=== PATIENT | female | born 1945 | race Caucasian/White ===

== ENCOUNTER 2017-05-03 07:08 | Day surgery (SDC) | payer MEDICARE, BC ==
[~2017-05-03 07:08] MED LIST: Acetaminophen TAB* 325 MG PO ONE; Buffered Lidocaine 0.9% SYRIN* 5 ML/SYR SYRINGE INTRADERM ONE; Dexamethasone IV* 4 MG/ML 1 ML (4 MG) IV SLOW PU ONE; Famotidine IV* 10 MG/ML 2 ML (20 mg) IV ONE; Midazolam* 1 MG/ML 2 ML VIAL (2 MG) IV ONE
[2017-05-03] MEDS ORDERED: Buffered Lidocaine 0.9% SYRIN* 5 ML/SYR SYRINGE ONE (07:22)
[2017-05-03] MEDS ORDERED: Lidocaine 2.5%/Prilocain 2.5%* 5 GM TUBE ONE (07:24)
--- NOTE | 2017-05-03 09:41 | RAD ---
HISTORY: Malignant melanoma. Lymphoscintigraphy of the left breast for the purposes of sentinel node identification. COMPARISONS: None TECHNIQUE: Previous imaging was reviewed. The procedure was explained to the patient who indicated that she understood. Written and verbal informed consent was obtained, with an opportunity to ask and answer questions. The breast was marked. A timeout was performed. The patient was prepped and draped in the usual sterile fashion. Technetium 99m sulfur colloid was administered in a subdermal fashion in 4 divided aliquots in a 360 degree arc surrounding the biopsy site of the skin lesion of the the left breast. Cine and planar imaging was performed. The first appearing axillary nodes was identified with the overlying skin marked. DOSE: Technetium 99m sulfur colloid, 0.451 millicuries, injected at 7:57 AM on May 03, 2017 FINDINGS: Uptake is noted within synchronously within 2 left axillary lymph node. The sites of uptake were marked on the overlying skin. OTHER: None IMPRESSION: TECHNICALLY SUCCESSFUL, UNCOMPLICATED, LYMPHOSCINTIGRAPHY OF THE LEFT BREAST FOR THE PURPOSES OF SENTINEL NODE LOCALIZATION. CPT II Codes: 5769L2S
[2017-05-03] MEDS ORDERED: Famotidine IV* 10 MG/ML 2 ML (20 mg) ONE (09:56)
[2017-05-03] MEDS ORDERED: Dexamethasone IV* 4 MG/ML 1 ML (4 MG) ONE (09:56)
[2017-05-03] MEDS ORDERED: Acetaminophen TAB* 325 MG ONE ×2 (10:02→14:54)
[2017-05-03] MEDS ORDERED: Midazolam* 1 MG/ML 2 ML VIAL (2 MG) ONE (10:28)
[2017-05-03] MEDS ORDERED: fentaNYL* 50 MCG/ML 2 ML VIAL (100 MCG VIAL) ONE ×2 (10:28→14:30)
[2017-05-03] MEDS ORDERED: Lidocaine 2% PF * 5 ML VIAL ONE (11:02)
[2017-05-03] MEDS ORDERED: Ondansetron INJ* 2 MG/ML VIAL ONE ×3 (11:02→14:54)
[2017-05-03] MEDS ORDERED: Propofol* 10 MG/ML 20 ML BTL IV PUSH ONE ×2 (11:02→13:15)
[2017-05-03] MEDS ORDERED: fentaNYL* 50 MCG/ML 2 ML VIAL (100 MCG VIAL) IV PRN (12:20)
[2017-05-03] MEDS ORDERED: oxyCODONE TAB* 5 MG TAB PO PRN (12:20)
[2017-05-03] MEDS ORDERED: Naloxone* 0.4 MG/ML 1 ML VIAL IV PRN (12:20)
[2017-05-03] MEDS ORDERED: Ondansetron INJ* 2 MG/ML VIAL IV PRN (12:20)
[2017-05-03] MEDS ORDERED: Scopolamine 1.5 mg* PATCH TRANSDERM PRN (12:20)
[2017-05-03] MEDS ORDERED: diPHENhydraMINE IV* 50 MG/ML 1 ml VIAL (BENADRYL) IV PRN (12:20)
[2017-05-03] MEDS ORDERED: oxyCODONE/Acetamin 5/325 MG* TAB PO PRN (12:20)
[2017-05-03] MEDS ORDERED: PROCHLORPERAZINE INJ 5 MG/ML 2 ML VIAL IV PRN (12:20)
[2017-05-03] MEDS ORDERED: HYDROmorphone INJ* 1 MG/ML CARPUJECT SYRINGE IV PRN (12:20)
[2017-05-03] MEDS ORDERED: Bupivacaine 0.25% SDV* 30 ML ONE (12:31)
[2017-05-03] MEDS ORDERED: EPHEDrine (Pressors)* 50 MG/ML VIAL ONE (12:52)
[2017-05-03] MEDS ORDERED: Glycopyrrolate IV* 0.2 MG/ML 1 ML VIAL ONE (12:52)
[2017-05-03] MEDS ORDERED: ceFAZolin 2 GM in 100 MLS NS (*) BAG IVPB ONE (13:03)
[2017-05-03] MEDS ORDERED: HYDROmorphone INJ* 1 MG/ML CARPUJECT SYRINGE ONE (13:14)
[2017-05-03] MEDS ORDERED: Ibuprofen TAB* 600 MG ONE (14:24)
[2017-05-03 15:18] VITALS: BP 117/83
--- NOTE | 2017-05-03 20:59 | OP ---
CC: [facility]; Dr. Juan Hernández; Dr. Saleem Goodson OPERATIVE REPORT: DATE OF OPERATION: 05/03/17 DATE OF : 47 SURGEON: Barbi Barbosa MD. DIAMOND DIE POLISHER: SUZIE Torre and SUZIE Dong student. PRE-OP DIAGNOSIS: Left breast melanoma. POST-OP DIAGNOSIS: Left breast melanoma. PROCEDURE: Wide excision of left breast melanoma and sentinel lymph node biopsy. INDICATIONS: Ms. Ellis is a 72-year-old woman recently diagnosed with melanoma of left breast promp ting the plan for wider excision and sentinel lymph node biopsy. On the date of the surgery, she unde rwent sentinel lymph node localization without difficulty, 2 nodes were identified. DESCRIPTION OF PROCEDURE: She was then brought to the operating room, placed on the OR table in a leahy pine position and given general anesthesia. The left breast and axilla were prepped and draped in th e usual sterile fashion. After infiltrating with local anesthetic, a curvilinear elliptical incision encompassing the original scar with a 2 cm margin was made. Subcutaneous tissue was then divided wi th electrocautery and hemostasis was achieved with electrocautery. A mass of tissue was excised to a couple of centimeters depth beneath the scar and then marked in the usual fashion and handed off as a specimen. The extent of the incision approached the axilla. So, the decision was made to excise t he sentinel nodes from the breast incision. This was done by using the navigator to identify the natalie roximate location of the sentinel nodes and then using a combination of sharp and blunt dissection to excise the sentinel nodes from the axilla. Clips were used to control small lymphatic and blood ves sels that approached the glands and LigaSure was also used to help control hemostasis. The first sen tinel node had 899 counts in situ, 681 counts ex vivo, the second sentinel node have 614 in situ and 656 ex vivo and the axillary bed counts once the two sentinel nodes were removed was 3. The wound wa s irrigated copiously with saline, hemostasis was assured with a combination of electrocautery and Leahy rgicel and once this appeared adequate, closure was accomplished. This was done with 3-0 and 2-0 Justen ryl in a subcutaneous layer and the skin was closed with 4-0 Vicryl in a subcuticular fashion. Steri -Strips and a dry fluffy dressing were applied. All sponge and instrument counts were correct. The patient tolerated the procedure well and was transferred to Recovery in a stable condition. [id number]/[facility] #: [id number]
[2017-05-06] MEDS ORDERED: Scopolamine PATCH Remove* 1 NOTE MISC PATCH OFF ONE (12:21)
== END 2017-05-03 15:31 | disposition home or self-care (01) ==
LOC: SDS 07:08
PROVIDERS: ATTEND Surgery
DX: C43.52 Malignant melanoma of skin of breast (principal); Z87.891 Personal history of nicotine dependence; I10 Essential (primary) hypertension; Z68.27 Body mass index [BMI] 27.0-27.9, adult; M19.90 Unspecified osteoarthritis, unspecified site; F41.9 Anxiety disorder, unspecified; E78.5 Hyperlipidemia, unspecified
CPT/HCPCS: 78195; 88305; 88307; 88341; 88342; A9270-GY; A9541; J1100; J1170; J2250; J2405; J2704; J3010

== ENCOUNTER 2017-10-18 07:31 | Observation (INO) | payer MEDICARE, BC ==
[2017-10-18] MEDS ORDERED: NS 0.9% 1000 ML* 1,000 ML IV ONE (08:05)
--- NOTE | 2017-10-18 08:14 | ED ---
Complex/Multi-Sys Presentation - HPI Summary HPI Summary: Patient is a 72 y/o F w/ low hemoglobin, weakness, tiredness, and light- headedness onsetting a week ago. Sx were present for a couple of days but she notes in room she is feeling better. Patient reports she went to see her PCP, Dr. Hernández, four days ago and bloodwork was done. She reports she found out today that she had low hemoglobin levels, reported to be between 6-6.2. She denies Hx of low hemoglobin. Patient also denies Hx of GI bleed, abdominal pain, chest pain, and SOB. She states she was diagnosed with melanoma in April and has been feeling overwhelmed with the various scans and appointments. Patient reports she is currently not on treatment for melanoma and reports most tests done as non-concerning. Hx of HTN reported, is on bet-evan. She denies blood thinners. Pt denies diabetes. Allergy to eggs is noted in room. PSHx of Caesarean sections, lumbar spine surgery, and biopsy. In room, she denies Hx of alcohol usage and notes she is an ex-smoker of 11 years. On triage, pain is denied and nothing is noted to aggravate/alleviate Sx. - History Of Current Complaint Chief Complaint: EDWeakness Time Seen by Provider: 10/18/17 07:49 Hx Obtained From: Patient Onset/Duration: Lasting Weeks - one week, Resolved - in room patient reports Sx have resolved Timing: Days - Sx lasted a couple of days, per patient Severity Currently: None - pain is denied Aggravating Factor(s): nothing Alleviating Factor(s): nothing Associated Signs And Symptoms: Positive: Weakness, Other - tiredness, light- headedness - Allergies/Home Medications Allergies/Adverse Reactions: Allergies Allergy/AdvReac Type Severity Reaction Status Date / Time Adhesive Tape Allergy Itching Verified 10/18/17 07:41 eggs Allergy Severe unable to Uncoded 10/18/17 07:41 digest eggs BANDAIDS Allergy Intermediate Rash Uncoded 10/18/17 07:41 PMH/Surg Hx/FS Hx/Imm Hx Endocrine/Hematology History: Denies: Hx Diabetes Cardiovascular History: Reports: Hx Hypertension - on meds Denies: Hx Pacemaker/ICD History: Denies: Hx Renal Disease Musculoskeletal History: Reports: Hx Arthritis Sensory History: Reports: Hx Contacts or Glasses - glasses Denies: Hx Hearing Aid Opthamlomology History: Reports: Hx Contacts or Glasses - glasses Psychiatric History: Reports: Hx Anxiety - no meds Denies: Hx Panic Disorder - Cancer History Cancer Type, Location and Year: MELANOMA Hx Chemotherapy: No - Surgical History Surgery Procedure, Year, and Place: 2 C SECTIONS. CYST REMOVED AT END OF SPINE AGE 19 Hx Anesthesia Reactions: Yes - after first , was an emergency-body "blew up, asleep for 2 days Infectious Disease History: No Infectious Disease History: Denies: Traveled Outside the [place] in Last 30 Days - Family History Known Family History: Positive: Hypertension - mother , Diabetes - mother - Social History Alcohol Use: None Substance Use Type: Reports: None Smoking Status (MU): Former Smoker - former smoker of 11 years Amount Used/How Often: smoked off and on 25 years approx 1/2ppd Review of Systems Positive: Fatigue - weakness, tiredness Neurological: Other - light-headedness All Other Systems Reviewed And Are Negative: Yes Physical Exam - Summary Physical Exam Summary: GENERAL: Patient is a well developed and nourished female who is lying comfortable in the stretcher. Patient is not in any acute respiratory distress. HEAD AND FACE: Normocephalic EYES: PERRLA, EOMI x 2. EARS: Hearing grossly intact. MOUTH: Oropharynx within normal limits. NECK: Supple, trachea is midline, no adenopathy, no JVD, no carotid bruit. CHEST: Symmetric, no tenderness at palpation LUNGS: Clear to auscultation bilaterally. No wheezing or crackles. CVS: Regular rate and rhythm, S1 and S2 present, no murmurs or gallops appreciated. ABDOMEN: Soft, non-tender. Bowel sounds are normal. No abdominal abnormal pulsations. 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 No abnormal findings, brown stool collected which will be sent for guaiac. EXTREMITIES: Full ROM in all major joints, no edema, no cyanosis or clubbing. NEURO: Alert and oriented x 3. No acute neurological deficits. Speech is normal and follows commands. SKIN: Dry and warm brown stool Triage Information Reviewed: Yes Vital Signs On Initial Exam: Initial Vitals Temp Pulse Resp BP Pulse Ox 98.1 F 84 14 137/71 100 10/18/17 07:34 10/18/17 07:34 10/18/17 07:34 10/18/17 07:34 10/18/17 07:34 Vital Signs Reviewed: Yes Diagnostics - Vital Signs Vital Signs Temp Pulse Resp BP Pulse Ox 10/18/17 07:34 98.1 F 84 14 137/71 100 - Laboratory Result Diagrams: 10/19/17 05:30 10/19/17 05:30 Lab Statement: Any lab studies that have been ordered have been reviewed, and results considered in the medical decision making process. - EKG 0849 Cardiac Rate: NL - Rate of 71 BPM EKG Interpretation: supraventricular bigeminy rhythm, Q-waves at anterior leads Re-Evaluation - Re-Evaluation First Eval Re-Evaluation Time: 09:10 Comment: Discussed results of labs and tests. Noted hemoglobin levels have dropped. Patient will be admitted [place] [facility] [place]. Patient is agreeable with this plan. Complex Multi-Symp Course/Dx Assessment/Plan: Patient is a 72 y/o F w/ low hemoglobin, weakness, tiredness, and light-headedness onsetting a week ago. Sx were present for a couple of days but she notes in room she is feeling better. Patient reports she went to see her PCP, Dr. Hernández, four days ago and bloodwork was done. She reports she found out yesterday that she had low hemoglobin levels, reported to be between 6-6.2. She denies Hx of low hemoglobin. Patient also denies Hx of GI bleed, abdominal pain, chest pain, and SOB. She states she was diagnosed with melanoma in April. Hx of HTN reported, is on beta-evan. She denies blood thinners and diabetes. PSHx of Caesarean sections, lumbar spine surgery, and biopsy. In room, she denies Hx of alcohol usage and notes she is an ex-smoker of 11 years. Physical exam revealed no abnormal findings. During ED course, patient was given fluids as well as Labs showed 5.6 Hgb, 19 Hct, WBC 11.9, RBC 2.41, iron 24. Stool Occult Blood was negative. EKG showed rate of 71 BPM and supraventricular bigeminy rhythm, Q-waves at anterior leads. Dr. Duarte was consulted at 09. After discussing case, Dr. Duarte agrees to accept patient for admission to [facility] [place] workup. Patient was diagnosed with symptomatic anemia. Plan for admission was discussed with patient. She is agreeable with this plan. - Diagnoses Provider Diagnoses: Symptomatic anemia - Physician Notifications Discussed Care Of Patient With: eZlda Duarte Time Discussed With Above Provider: 09:23 Instructed by Provider To: Other - Patient's case was discussed with Dr. Duarte at 0923. Dr. Duarte accepts patient for admission to [facility] [place] further workup. - Critical Care Time Critical Care Time: 30-74 min - 15 minutes Discharge - Sign-Out/Discharge Documenting (check all that apply): Patient Departure - admit - Discharge Plan Condition: Good Disposition: ADMITTED TO [facility] - Billing Disposition and Condition Condition: GOOD Disposition: Admitted to [facility] - Attestation Statements Document Initiated by Cresencio: Yes Documenting Scribe: Marty Monsalve Provider For Whom Cresencio is Documenting (Include Credential): Endy Serna M.D. Scribe Attestation: Marty Feldman scribed for Endy Serna M.D. on 10/19/17 at 1725. Scribe Documentation Reviewed: Yes Provider Attestation: The documentation as recorded by the Marty hernandez accurately reflects the service I personally performed and the decisions made by Endy teran M.D.
[2017-10-18 08:59] LABS: ABS Basophils 0.1 10^3/ul (0-0.2); ABS Eosinophils 0.2 10^3/ul (0-0.6); ABS Lymphocytes 1.5 10^3/ul (1.0-4.8); ABS Monocytes 0.9 10^3/ul (0-0.8); ABS Neutrophils 9.3 10^3/ul (1.5-7.7); ABS Nucleated RBC 0 10^3/ul; Eosinophil % 1.3 % (0-6); Hematocrit 19 % (35-47); Hemoglobin 5.6 g/dl (12.0-16.0); Lymphocyte % 12.3 % (25-47); Mean Corpuscular HGB Conc 30 g/dl (31-36); Mean Corpuscular Hemoglobin 23 pg (27-31); Mean Corpuscular Volume 77 fL (80-97); Mean Platelet Volume 7.4 um3 (7.4-10.4); Nucleated Red Blood Cells % 0; Platelet Count 449 10^3/ul (150-450); Red Blood Count 2.41 10^6/ul (4.00-5.40); Red Cell Distribution Width 18 % (10.5-15); White Blood Count 11.9 10^3/ul (3.5-10.8)
[2017-10-18 09:10] LABS: EGFR Non-African American 78.6 (>60)
[2017-10-18 09:12] LABS: INR 0.99 (0.77-1.02)
[2017-10-18] MEDS ORDERED: Ondansetron INJ* 2 MG/ML VIAL IV PRN (11:23)
[2017-10-18] MEDS ORDERED: Magnesium Hydroxide LIQ* 30 ML UDC PO PRN (11:23)
[2017-10-18] MEDS ORDERED: Al Hydrox/Mg Hydrox/Simet LIQ* 30 ML UDC PO PRN (11:23)
[2017-10-18] MEDS ORDERED: Acetaminophen TAB* 325 MG PO PRN (11:23)
[2017-10-18] MEDS ORDERED: Albuterol 2.5 MG/3 ML NEB.SOL* (0.083%) INH PRN (11:23)
[2017-10-18] MEDS ORDERED: Potassium Chlor TAB* 20 MEQ TAB.ER PO ONE (11:28)
--- NOTE | 2017-10-18 15:00 | CONS ---
CONSULTATION REPORT: DATE OF CONSULT: 10/18/17 REQUESTING PHYSICIAN: Dr. Rose. INDICATION: Anemia. NARRATIVE: Ms. Ellis is a very pleasant 72-year-old female, who was recently diagnosed with malignant melanoma. The patient states that she has been feeling progressively worse over the past few weeks. She feels very weak and tired. She saw her primary care physician on Saturday, was feeling terrible and a blood count was low at that point. It was approximately 6.2, back in July, it was 12.0. The patient then called her primary care physician again today, had more blood work and she was found to have a hemoglobin of 5.6 and was told to come to the emergency room. The patient does feel weak, dizzy and lightheaded. She denies any nausea, vomiting. No abdominal pain. She denies any change in her bowel habits. No diarrhea or constipation. She denies any blood in her stool. No bright red, maroon or black tarry stools. She did have a Hemoccult test in the emergency room that was negative. The patient denies any nonsteroidals. She does take Tylenol as needed for aches and pains. She has never had GI bleeding in the past. No family history of GI bleeding. She currently feels fine other than feeling fatigued and lethargic. PAST MEDICAL HISTORY: Significant for hypertension, hyperlipidemia, malignant melanoma. PAST SURGICAL HISTORY: . MEDICATIONS: Include: 1. Toprol. 2. Pravastatin. 3. Lisinopril. 4. Coenzyme Q. ALLERGIES: No known drug allergies. FAMILY HISTORY: Diabetes; however, no malignancies. SOCIAL HISTORY: No tobacco, alcohol, or IV drug use. She quit smoking approximately 10 years ago. REVIEW OF SYSTEMS: Twelve systems were reviewed and other than that mentioned in the HPI were unremarkable. PHYSICAL EXAM: Temperature is 98.1, blood pressure is 133/71, pulse is 74, respiratory rate of 18, O2 sat is 100%. General: A well-appearing female, in no apparent distress; alert, oriented, pleasant, and fluent. HEENT: Mucous membranes are moist without lesions, ulcers, or exudate. Neck is supple. Trachea is midline. Sclerae anicteric, but conjunctivae are pale. Heart: Regular rate and rhythm. Slightly tachycardic. Lungs: Clear to auscultation. No wheezes, rales, or rhonchi. Abdomen: Positive bowel sounds. Obese, soft , nontender, nondistended. No hepato-splenomegaly, masses, rebound, or guarding. Skin is warm and dry, pale. No rashes or ulcers. DIAGNOSTIC STUDIES/LAB DATA: Labs of note, she has a hemoglobin of 5.6, white count is 11.9, her MCV is 77, platelet count of 449. INR is 0.99. BUN is normal at 10, creatinine is 0.73. Her percent saturation is 8, ferritin is 5.5. AST of 10. LDH is 116. She was heme-negative in the emergency room. ASSESSMENT AND PLAN: A pleasant 72-year-old female with malignant melanoma, who has anemia, but no obvious GI source. I had a long discussion with the patient regarding possible causes of anemia. We extensively discussed gastrointestinal blood loss. I discussed the fact that she should have an EGD and colonoscopy for further evaluation of this. At this point, she really does not want either procedure done. She seems adamant about the colonoscopy, but potentially open to an upper endoscopy. She tells me she wants to think about things further. We will follow continue to follow along and return if there are any questions. [id number]/[facility] #: [id number] GREGORIO
[2017-10-18 15:25] LABS: Corrected Retic Count 1.5 % (0.5-1.5); Hematocrit for Retic CNT 21 % (35-47); Immature Retic Fraction 0.54; RBC Retic Count 2.65 10^6/ul (4.6-6.2)
--- NOTE | 2017-10-18 16:47 | HP ---
CC: Dr. Hernández; Dr. Saleem Goodson; Dr. Velasquez from GI * ADMISSION HISTORY AND PHYSICAL: DATE OF ADMISSION: 10/18/17. ATTENDING HOSPITALIST: Dr. Zelda Rose * (DICTATED BY SUZIE PERALTA) PRIMARY CARE PHYSICIAN: Dr. Hernández CHIEF COMPLAINT: Weakness and fatigue. HISTORY OF PRESENT ILLNESS: Mrs. Ellis is a 72-year-old female with past medical history significant for hypertension, hyperlipidemia as well as recent diagnosis of melanoma back in March of this year, who presented to the emergency room with generalized weakness and fatigue since the beginning of this month. The patient was seen by her primary care physician earlier this week and had laboratory workup done. She received the phone call from her primary care's office earlier this morning informing her that she has a critical hemoglobin and hematocrit value and she was advised to go immediately to the emergency room for further evaluation. The patient herself denies any nausea, vomiting, hematemesis, melena, or any history of GI bleed. She has never been on any source of anticoagulation therapy. She has never had any upper endoscopy or colonoscopy in the past. Her only significant recent history was her diagnosis of malignant melanoma back in March of this year, for which she had an excision showing an invasive melanoma stage II up to 13 mm deep, however, her sentinel node biopsy revealed no evidence of node or distant metastasis. The patient has never had any chemotherapy on that regard. She was seen by Dr. Goodson last month and her most recent PET scan was negative back then. She was evaluated in the emergency room and found to have hemoglobin of 5.6 and hematocrit of 19. Her BUN and creatinine were essentially normal which is typically elevated with any source of active GI bleed. She had a stool occult blood done in the emergency room that was negative for GI bleed as well. Given her ongoing symptoms for the past 4 weeks and the finding of profound anemia that appears to be microcytic and microchromic, we were asked to see the patient for admission and further evaluation of symptomatic anemia. PAST MEDICAL HISTORY: As mentioned above is significant for hypertension, hyperlipidemia, obesity, and recent diagnosis of malignant melanoma stage II back in March of this year. PAST SURGICAL HISTORY: Significant for section and cyst excision on her spine at age 18. CURRENT MEDICATIONS: Her medications at home include: 1. Acetaminophen arthritis tablets 1 to 2 q.6 hours as needed for arthritis aches and pains. 2. CoQ10 30 mg capsules 1 tab p.o. daily. 3. Metoprolol succinate 25 mg p.o. b.i.d. 4. Pravastatin 40 mg p.o. q.h.s. 5. Women's multivitamins 1 tablet daily. ALLERGIES: ADHESIVE TAPE, BANDAGE and EGGS. FAMILY HISTORY: Significant for diabetes mellitus and hypertension, but denies any family history of colorectal malignancies. SOCIAL HISTORY: The patient is . She lives with her son and daughter-in - law. 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 She used to be a everyday smoker. Quit back in 2006. Smoked on average half a pack per day and she denies alcohol use. Her surrogate decision maker is her son and she wishes to be a full code. REVIEW OF SYSTEMS: See HPI, otherwise 14-point review of systems were examined and they were essentially negative. PHYSICAL EXAMINATION GENERAL: She is a pleasant, healthy-appearing, older female, appears a little pale, but in no acute distress or discomfort at the time of admission. VITAL SIGNS: Revealed a temperature of 98.1, pulse of 74, blood pressure of 133 /71, respirations of 18 with O2 sats of 100% on room air. HEENT: Head is normocephalic, atraumatic. Sclerae anicteric. EOMs intact. Oropharynx is pink and moist. NECK: Supple. Trachea midline. No cervical adenopathy, thyromegaly or JVD. LUNGS: Clear to auscultation bilaterally. HEART: Regular rate and rhythm. Normal S1 and S2 without rubs, murmurs or gallops. BACK: With normal curvature. No CVA tenderness. BREASTS: Breast exam deferred at this time. ABDOMEN: Soft, nontender, and nondistended. No hernias, masses or hepatosplenomegaly. EXTREMITIES: Without cyanosis, clubbing or edema. RECTAL: Exam deferred at this time. Hemoccult stool done in the ED was negative. NEUROLOGIC: Grossly intact. DIAGNOSTIC STUDIES/LAB DATA: Laboratory workup: CBC with white count of 11, 900, hemoglobin of 5.6, hematocrit of 19, and platelets of 449. Her MCV is 77 and MCH is 23. Coags with normal INR at 0.99. Chemistry panel with slightly decreased potassium of 3.3. Sodium 140, chloride 108, CO2 29, BUN of 10, and creatinine of 0.73. Her glucose is 117. Iron studies revealed iron of 24, TIBC of 308 and iron saturation of 8, unsaturated iron binding of 284, transferrin 220 and ferritin of 5.5. Her LFTs, troponin essentially within normal limits. Vitamin B12 459 and folate was greater than 20. IMPRESSION: A 72-year-old female with past medical history significant for hypertension, hyperlipidemia, and recent diagnosis of malignant melanoma with apparent negative node or distal metastasis who presented to the emergency room with 4 weeks' history of progressive fatigue and weakness on exertion and found to be profoundly anemic on laboratory workup. ASSESSMENT AND PLAN: 1. Severe anemia. The patient will be admitted to a telemetry unit for observation. Her type and cross match was done in the emergency room and orders were given to transfuse 2 units of packed red blood cells. She appeared to be hemodynamically stable with no apparent source of a gastrointestinal bleed at this point. I had a long discussion with her regarding potential endoscopy for further evaluation. The patient has never had any colonoscopy done in the past and never had any upper endoscopy, however, she denies any history of peptic ulcer disease or excessive use of NSAIDs. I discussed with her the potential to have colonic malignancy that could be responsible for her profound anemia and decreased iron. GI consultation is pending at this time. I placed a call for Dr. Fagan and await for him to call back. I also discussed the case with Dr. Fitch who agreed to see the patient in consultation given her history of melanoma, however, she had no evidence of any localized node or metastasis or distal metastasis that could be responsible for her anemia or gastrointestinal bleed potentially. We will recheck her H and H after transfusion. Again, she appears stable with no symptoms of chest pain, palpitation, only fatigue on exertion. 2. Hypertension. I will continue her metoprolol for the time being. 3. Hyperlipidemia. We will continue her statin therapy. 4. Hypokalemia. I will replace her potassium and check labs in the morning. 5. History of melanoma. Again, the patient had excision with good margins and no evidence of a sentinel node metastasis or distal metastasis in her last PET scan, was done in August. I will await recommendation by the Hematology/Oncology team. 6. DVT prophylaxis. Given possibility of gastrointestinal bleed, I will hold off any chemical prophylaxis at this point, even though the patient is considered high risk given her age and history of malignancy. We will utilize SCDs for the time being. 7. Code status. She is a full code. TIME SPENT: Approximately 60 minutes were spent admitting this patient with greater than 50% on taking history and performing physical exam. I went on and discussed the plan of care with my attending, Dr. Rose, who agreed and we will follow her up accordingly. SUZIE PERALTA [id number]/[facility] #: [id number] GREGORIO
[2017-10-18] MEDS: Omeprazole CAP* 20 MG PO SCH ×2 (17:12→20:41)
[2017-10-18] MEDS ORDERED: Atorvastatin* 10 MG TAB PO SCH (18:00)
--- NOTE | 2017-10-18 18:58 | HP ---
HISTORY AND PHYSICAL: ADDENDUM: The case was reviewed and discussed with Lorie Torre, physician processing assistant. Mrs. Ellis is a 72-year-old lady with a past medical history of stage II melanoma who presents to [facility] emergency room with complaints of weakness. She was found to have a hemoglobin of 5.6 and further workup reveals iron deficiency anemia. Stool for occult blood in the emergency room was negative, bu t suspect the patient has GI loss. She will be admitted, will receive 2 PRBCs. We are going to monitor her H and H and she will be seen in consultation by Hematology and Gastroenterology. [id number]/[facility] #: [id number]
[2017-10-18] MEDS: Metoprolol Succinate XL TAB* 25 MG PO SCH (20:41)
[2017-10-18 21:23] LABS: Hematocrit 23 % (35-47); Hemoglobin 7.6 g/dl (12.0-16.0)
--- NOTE | 2017-10-18 21:43 | CONS ---
HEMATOLOGY/ONCOLOGY CONSULTATION REPORT: DATE OF CONSULT: 10/18/17 PRIMARY CARE PROVIDER: Dr. Hernández. PRIMARY ONCOLOGIST: Dr. Goodson. CONSULTING BILLET CUTTER: Dr. Velasquez. REQUESTING PROVIDER: SUZIE Parker CONSULTING PROVIDER: SUZIE Colindres CHIEF COMPLAINT: Weakness and abnormal labs, referred by PCP. 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 The patient had a hemoglobin of 12.0 g/ dL, 08/06/17, and on labs earlier this week, her hemoglobin had fallen to 6.2 g/ dL. The patient did contact oncology office requesting transfusion but urgent GI evaluation was recommended and the patient was referred to the emergency department. The patient reports that she has had progressive weakness over the last month or so. She denies any associated abdominal pain, black or tarry-appearing stools, or bright red blood per rectum. No associated nausea or vomiting. No fevers or night sweats. No new lymphadenopathy or concerning moles. In the emergency department, repeat CBC showed hemoglobin of 5.6 g/dL with an MCV of 77 with mild leukocytosis with total white blood cell count of 11,900 and normal platelet count of 449,000. Coags were noted to be normal. Iron studies show a picture of iron deficiency and her chemistries are remarkable only for mild hypokalemia. The patient denies any recent NSAID use and denies recent addition of anticoagulants or other new medications. PAST MEDICAL HISTORY: 1. Melanoma - T4 tumor, BRAF positive without evidence of metastatic disease. 2. Hypertension. 3. Hyperlipidemia. HOME MEDICATIONS: 1. Acetaminophen 1 to 2 tablets p.o. q.6 hours as needed for pain. 2. CoQ10 30 mg p.o. daily. 3. Metoprolol tartrate 25 mg p.o. twice daily. 4. Pravastatin 40 mg p.o. daily. 5. One-A-Day Women's vitamin. PHYSICAL EXAM: Initial vitals, temperature 98.1 degrees Fahrenheit, pulse 84 beats per minute, respiratory rate 14 per minute, oxygen saturation 100% on room air, blood pressure 137/71 mmHg. General: This is a very pleasant 72-year -old female, who does appear pale but is not in any acute distress. HEENT: Head is normocephalic, atraumatic. Mucous membranes are pink and moist. Cardiovascular: Heart has an occasional extra beat on auscultation, which corresponds to PAC seen on telemetry. No murmurs, rubs, or gallops are appreciated though. Respiratory: Lungs are clear to auscultation without wheezes, crackles, or rhonchi. Abdomen: Soft and nontender to palpation. Extremities: There is trace edema in the left lower extremity, nontender to palpation. Skin: Skin is pale. DIAGNOSTIC STUDIES/LAB DATA: CBC shows white blood cell count of 11,900, hemoglobin of 5.6 g/dL, platelet count of 449,000, MCV of 77, reticulocyte count is pending. INR of 0.99, PTT of 27.5. Comprehensive metabolic panel shows normal sodium of 140 mmol/L, potassium of 3.3, normal BUN of 10, creatinine 0.73. Transaminases and total bilirubin are unremarkable. LDH is low side of normal at 116. Iron saturation at 8%, ferritin low at 5.5. Vitamin B12 is normal at 459. Folate is listed as greater than 20. Imaging: None. ASSESSMENT AND PLAN: This is a 72-year-old female with history of a T4N0M0 melanoma, status post wide excision with negative margins, April of 2017, who presents with severe iron-deficiency anemia and complaints of weakness. 1. Severe iron-deficiency anemia - this appears to be a picture consistent with blood loss likely of a gastrointestinal source. Notably, the patient's stool was negative for blood in the emergency department and she denies any stool changes consistent with bleeding. The patient is currently receiving 2 units of packed red blood cells and plans for hemoglobin to continue to be monitored. Gastroenterology has been consulted and the patient is hesitant to consider endoscopy, either upper or lower. Recommend considering starting a IV proton pump inhibitor and we will discuss this with primary service if Gastroenterology has not already. 2. History of melanoma - last PET scan was completed August of 2017 approximately 6 months out from diagnosis and at that time showed no evidence of disease. The patient did not require any systemic therapy for her melanoma and is currently in close surveillance. It seems unlikely that her current presentation is related to malignancy. 3. Hypertension. 4. Hyperlipidemia. Thank you for this consultation. Hematology/oncology service will follow along with this patient. Recommend continuing plan of care as listed above. SUZIE COLINDRES [id number]/[facility] #: [id number] MTDD
[2017-10-19 05:38] LABS: ABS Basophils 0.1 10^3/ul (0-0.2); ABS Eosinophils 0.4 10^3/ul (0-0.6); ABS Lymphocytes 1.7 10^3/ul (1.0-4.8); ABS Monocytes 1.1 10^3/ul (0-0.8); ABS Neutrophils 8.5 10^3/ul (1.5-7.7); ABS Nucleated RBC 0 10^3/ul; Eosinophil % 3.4 % (0-6); Hematocrit 24 % (35-47); Hemoglobin 7.7 g/dl (12.0-16.0); Lymphocyte % 14.1 % (25-47); Mean Corpuscular HGB Conc 32 g/dl (31-36); Mean Corpuscular Hemoglobin 25 pg (27-31); Mean Corpuscular Volume 77 fL (80-97); Mean Platelet Volume 7.4 um3 (7.4-10.4); Nucleated Red Blood Cells % 0; Platelet Count 417 10^3/ul (150-450); Red Blood Count 3.11 10^6/ul (4.00-5.40); Red Cell Distribution Width 18 % (10.5-15); White Blood Count 11.8 10^3/ul (3.5-10.8)
[2017-10-19 05:55] LABS: EGFR Non-African American 83.9 (>60)
[2017-10-19] MEDS ORDERED: Ferrous Sulfate TAB* 325 MG PO SCH (09:00)
[2017-10-19] MEDS: Metoprolol Succinate XL TAB* 25 MG PO SCH (09:19)
[2017-10-19] MEDS: Omeprazole CAP* 20 MG PO SCH (09:19)
--- NOTE | 2017-10-19 11:00 | PN ---
Progress Note - Progress Note Date of Service: 10/19/17 Note: Discharge Progress Note Primary Diagnosis: iron deficiency anemia Secondary Diagnoses: Hypertension hyperlipidemia melanoma, diagnosed 04/14 Consultations: Dr. Velasquez Procedures: none Pertinent Lab/Radiology testing: FOBT negative Laboratory Tests 10/18/17 10/18/17 10/18/17 08:29 08:33 15:16 WBC 11.9 H Hgb 5.6 L* Hct 19 L MCV Plt Count [place] % (Auto) Retic Count, Calc 3.3 H Potassium 3.3 L Calcium Iron 24 L TIBC 308 % Saturation 8 L Ferritin 5.5 L Lactate Dehydrogenase 116 L Vitamin B12 459 10/19/17 10/19/17 05:30 05:30 WBC 11.8 H Hgb 7.7 L Hct 24 L MCV 77 L Plt Count 417 [place] % (Auto) 9.2 H Retic Count, Calc Potassium 3.6 Calcium 8.0 L Iron TIBC % Saturation Ferritin Lactate Dehydrogenase Vitamin B12 Tests pending upon discharge: none Discharge Physical Exam: Selected Entries 10/19/17 08:13 Temperature 36.9 C Pulse Rate 73 Respiratory 16 Rate Blood Pressure 116/72 (mmHg) Alert, no distress Lungs: clear Heart: RRR, no murmur Abdo: soft, NT, +BS
[2017-10-19 12:04] VITALS: BP 128/69
--- NOTE | 2017-10-20 00:43 | DS ---
CC: Dr. Juan Hernández; Dr. Goodson; Dr. Velasquez DISCHARGE SUMMARY: DATE OF ADMISSION: 10/18/17 DATE OF DISCHARGE: 10/19/17 PRIMARY DIAGNOSIS: Iron-deficiency anemia. SECONDARY DIAGNOSES: 1. Hypertension. 2. Hyperlipidemia. 3. Suspect gastrointestinal bleed, although fecal occult blood negative. 4. Melanoma, diagnosed in March of this year. MEDICATIONS ON DISCHARGE: 1. Toprol-XL 25 mg p.o. b.i.d. 2. Pravachol 40 mg p.o. q.p.m. 3. Multivitamin 1 tab p.o. q.a.m. 4. Tylenol as needed for pain. 5. Iron sulfate 325 mg p.o. b.i.d. 6. Omeprazole 20 mg p.o. b.i.d. HOSPITAL COURSE: A 72-year-old woman was admitted with worsening weakness and fatigue, dyspnea with exertion. She was found to have a hemoglobin of 5.6, but fecal occult blood test was negative. She has not had any melena or hematemesis. The patient was seen in consultation by SUZIE Monroe, of Hematology/Oncology. She had an aggressive T4 lymphoma removed in February of this year with an axill arabella sentinel node dissection that was negative. She evaluated the patient's anemia and found her to be iron-deficient. The patient received 2 units of packed red cells and felt much improved with her fatigue and dyspnea. She was not advised to have any further treatment for melanoma other than surve illance with PET scans and office visits. The patient was also seen in consultation by Dr. Velasquez, Gastroenterology. He recommended colonoscopy and EGD, which she has never had colonoscope or EGD in the past. The patient in the past refused colonoscopy because her family members have had adverse ev ents with these procedures. She will consider endoscopy as an outpatient, but was not ready to decid e at this time. The patient was treated with IV Protonix and started on iron orally. The patient wi ll be discharged on oral proton pump inhibitor on the presumption that she has an intermittent bleedi ng peptic ulcer or gastritis. The patient should follow up with Dr. Goodson for the anemia as well as m elanoma surveillance and should follow up with Dr. Velasquez in his office for discussion of EGD and co lonoscopy. DISPOSITION: To home. ACTIVITY: As tolerated. DIET: Should be low salt. DISCHARGE FOLLOWUP: She should see her primary care doctor, Dr. Hernández, in the next few weeks. [id number]/[facility] #: [id number]
== END 2017-10-19 12:34 | disposition home or self-care (01) ==
LOC: ED 07:31 → MEDTELE 09:32
PROVIDERS: ADMIT Internal Medicine; ATTEND Internal Medicine
DX: D50.9 Iron deficiency anemia, unspecified (principal); E78.5 Hyperlipidemia, unspecified; C43.9 Malignant melanoma of skin, unspecified; E87.6 Hypokalemia; R53.1 Weakness; I10 Essential (primary) hypertension; E66.9 Obesity, unspecified; Z87.891 Personal history of nicotine dependence; Z79.899 Other long term (current) drug therapy; Z82.49 Family history of ischemic heart disease and other diseases of the circulatory system; I25.2 Old myocardial infarction; R94.31 Abnormal electrocardiogram [ECG] [EKG]; R42 Dizziness and giddiness
CPT/HCPCS: 36415; 36430; 80048; 80053; 82272; 82607; 82728; 82746; 83010; 83540; 83550; 83615; 84484; 85014; 85018; 85025; 85045; 85610; 85730; 86850; 86900; 86901; 86922; 93005; 96360; 96361; 99284; A9270-GY; G0378; P9040

== ENCOUNTER 2017-10-30 18:00 | Inpatient (IN) | payer MEDICARE, BC ==
[2017-10-30] MEDS ORDERED: Acetaminophen TAB* 325 MG PO PRN (18:06)
[2017-10-30] MEDS: Omeprazole CAP* 20 MG PO SCH (20:36)
[2017-10-30] MEDS: Ferrous Sulfate TAB* 325 MG PO SCH (20:37)
[2017-10-30] MEDS: Metoprolol Succinate XL TAB* 25 MG PO SCH (20:37)
[2017-10-30] MEDS: Dexamethasone IV* 4 MG/ML 1 ML (4 MG) IV SLOW PU SCH (20:38)
--- NOTE | 2017-10-30 21:35 | HP ---
CC: Dr. Hernández * ADMISSION HISTORY AND PHYSICAL: DATE OF ADMISSION: 10/30/17 PRIMARY CARE PROVIDER: Dr. Hernández. PRIMARY ONCOLOGIST AND ATTENDING PHYSICIAN: Saleem Goodson MD * (DICTATED BY SUZIE COLINDRES) ADMITTING PROVIDER: SUZIE Colindres CHIEF COMPLAINT: Right arm paralysis. HISTORY OF PRESENT ILLNESS: This is a 72-year-old female with hypertension, hyperlipidemia with a history of stage IIC melanoma that was initially resected in February of this year and was later reexcised with lymph node biopsy in April. She was node negative at that time and negative for metastatic disease. The patient has been under surveillance since that time and underwent PET scan in July of this year, which again showed no evidence of disease and the patient has otherwise been asymptomatic. She was hospitalized a couple of weeks ago with complaints of profound weakness and was found to be severely anemic with a hemoglobin of approximately 5.5. This is associated with iron deficiency and seemed to be related to GI blood loss, although her stool was heme-negative at the time of admission. The patient was transfused 2 units of packed red blood cells and she refused and upper and lower endoscopy and was instead treated with a PPI. The patient presented to medical oncology office today for followup from this recent hospitalization and also mentioned that she has been unable to move her right arm for the last couple of days. After thinking back, the patient states that she noted some very slight right arm weakness when she was finding her discharge papers on 10/19/17 as she was leaving the hospital, but otherwise it felt quite well since returning home. Then a few days ago, she went out for a walk and noticed some swelling in her right hand and then had progressive weakness to the point that she has been unable to move her entire right arm. She denied any associated neck pain. No headache or visual changes. No facial drooping or speech slurring. No numbness , tingling, or weakness in any other extremities. The patient was subsequently sent for stat MRI from medical oncology office, which confirmed multiple brain metastases. PAST MEDICAL HISTORY: 1. Stage IIC melanoma, BRAF mutant with a T4 lesion excised from the left breast, initially in February and then with wide excision and lymph node biopsy in April. 2. Hypertension. 3. Hyperlipidemia. 4. Recent GI bleed without endoscopy. PAST SURGICAL HISTORY: 1. section. 2. Benign cyst excised at 18 years of age. HOME MEDICATIONS: 1. Metoprolol succinate 25 mg p.o. twice daily. 2. Pravastatin 40 mg p.o. daily. 3. Ferrous sulfate 325 mg p.o. twice daily. 4. Omeprazole 20 mg p.o. twice daily. FAMILY HISTORY: The patient has no family history of malignancy. Strong family history of diabetes and hypertension. SOCIAL HISTORY: The patient is . Currently, lives alone. She has 2 sons that are in the area and quite supportive. She has approximate 15-pack year smoking history, quit in 2006. PHYSICAL EXAMINATION GENERAL: This is a 72-year-old female, in no acute distress, accompanied by her son. HEENT: Head is normocephalic, atraumatic. Mucous membranes are pink and moist. RESPIRATORY: Lungs are clear to auscultation without wheezes, crackles, or rhonchi. CARDIOVASCULAR: Heart has a regular rate and rhythm without murmurs, rubs, or gallops. ABDOMEN: Abdomen is soft and nontender to palpation. EXTREMITIES: The patient has 1+ edema in the right hand and associated flaccid paralysis of the entire right upper extremity. Passive range of motion is intact and does not cause pain. NEURO: Cranial nerves II through XII were grossly intact with the exception of XI. The patient is unable to complete a right shoulder shrug. She has as mentioned above flaccid paralysis of the right upper extremity. Sensation is intact. No other focal weaknesses noted. LABORATORY EVALUATION: CBC shows a white blood cell count of 12,700, hemoglobin of 8.4 g/dL, and platelet count of 552,000. Comprehensive metabolic panel shows a sodium of 138 mmol/L, potassium of 3.6, BUN of 10, creatinine 0.69 , random glucose of 108. Transaminases and total bilirubin are within normal limits. LDH is pending. IMAGIN. MRI of the brain completed with and without contrast demonstrates multiple enhancing lesions of the cerebral hemispheres bilaterally, the largest lesion is in the left inferofrontal lobe measuring 3.3 cm in size with associated vasogenic edema, most consistent with metastatic disease, there is a 3 mm shift to the right. Additionally, a lesion noted in the right occipital lobe measuring 1.7 cm and a 2.3 cm lesion in the left posterior frontal lobe and anterior parietal lobe. 2. Venous Doppler shows a short segment occlusion of the right basilic vein overlying the elbow and proximal forearm. No evidence of a deep vein thrombosis. ASSESSMENT AND PLAN: This is a 72-year-old female with hypertension, hyperlipidemia, and a history of stage IIC melanoma excised earlier this year who now presents with right upper extremity flaccid paralysis after recent GI bleed with evidence of multiple brain metastases on MRI completed earlier today. The patient is being admitted to the hospital for IV dexamethasone as well as neurosurgical and radiation oncology consultation. 1. Brain metastases - this likely represents new onset of metastatic disease from her known melanoma. PET scan from 3 months ago showed no evidence of systemic disease. Her brain metastases are quite large and case was briefly discussed with radiation oncologist, Dr. Diego Renae who felt that the largest lesion which is causing the majority of her symptoms may be too large to adequately control with radiosurgery alone. We will plan to start IV dexamethasone and monitor right upper extremity for signs of improvement and motor function. Meanwhile, the patient is BRAF mutant and BRAF targeted therapy could help to control [employer] disease as well making the lesion more amenable to radiosurgery. Also requested consultation from Neurosurgery to review for possible decompression. Lowest risk for the patient due to the sensitive region of this metastatic lesion is likely use of corticosteroids accompanied by whole brain radiation and gamma boost in the future as [employer] lesion shrink with systemic therapy. 2. Superficial vein thrombosis - the patient has a superficial occlusion of the right basilic vein over the area of the right elbow. This is not near the deep system and likely related to a recent IV in that arm. She is extremely high risk for bleeding between her brain metastases and recent GI bleed and for this reason, we will not anticoagulate or start antiplatelet therapy at this time. 3. Recent gastrointestinal bleed - the patient refused upper and lower endoscopy during her recent hospitalization. Her hemoglobin today is 8.4 g/dL and it was 7.7 just 10 days ago when she left the hospital. She has had no evidence of additional bleeding since discharge. Her concern for metastatic implants along the GI tract that may have intermittently bled leading to her prior presentation. Briefly, discussed utility of endoscopy with the patient at the time of admission, but we will reinforce this later and the patient will likely require upper and lower endoscopy. 4. Melanoma - in addition to discussion above, we will also restage systemically with a CT of the chest, abdomen, and pelvis. LDH was also added on to labs from earlier today. 5. Hypertension - continue metoprolol. 6. Hyperlipidemia. Continue her statin. 7. Code status. The patient is full code. 8. DVT prophylaxis - we will hold on chemical prophylaxis given high risk of bleeding. Recommend intermittent compression devices. 9. Healthcare proxy is her son. DISPOSITION: The patient is being admitted to inpatient status and anticipated length of stay to be greater than 2 midnights. SUZIE COLINDRES [id number]/[facility] #: [id number] MTDFrancia
[2017-10-31] MEDS ORDERED: Iohexol 300* (CONTRAST) 10 ML SDV IV ONE (07:38)
[2017-10-31 08:42] LABS: EGFR Non-African American 94.9 (>60)
[2017-10-31 09:17] LABS: ABS Basophils 0 10^3/ul (0-0.2); ABS Eosinophils 0 10^3/ul (0-0.6); ABS Lymphocytes 1.1 10^3/ul (1.0-4.8); ABS Monocytes 0.4 10^3/ul (0-0.8); ABS Neutrophils 9.9 10^3/ul (1.5-7.7); ABS Nucleated RBC 0 10^3/ul; Eosinophil % 0 % (0-6); Hematocrit 26 % (35-47); Hemoglobin 8.1 g/dl (12.0-16.0); Lymphocyte % 9.7 % (25-47); Mean Corpuscular HGB Conc 32 g/dl (31-36); Mean Corpuscular Hemoglobin 26 pg (27-31); Mean Corpuscular Volume 81 fL (80-97); Mean Platelet Volume 7.3 um3 (7.4-10.4); Nucleated Red Blood Cells % 0; Platelet Count 491 10^3/ul (150-450); Red Blood Count 3.18 10^6/ul (4.00-5.40); Red Cell Distribution Width 22 % (10.5-15); White Blood Count 11.4 10^3/ul (3.5-10.8)
--- NOTE | 2017-10-31 10:55 | RAD ---
HISTORY: new brain mets, systemic staging COMPARISONS: None TECHNIQUE: Multiple contiguous axial CT scans were obtained of the chest, abdomen, and pelvis after the administration of intravenous contrast. Coronal and sagittal multiplanar reformations are submitted for review.. Oral contrast was administered. Delayed images were obtained through the abdomen and pelvis. FINDINGS: CHEST NECK AND THYROID: The lower neck and thyroid are unremarkable. CHEST WALL: There is no lower cervical, axillary, or supraclavicular lymphadenopathy by size criteria. HEART AND PERICARDIUM: The heart is unremarkable. AORTA AND PULMONARY VASCULATURE: The aorta and pulmonary vasculature are normal. The left vertebral artery originates from the aortic arch. MEDIASTINUM: There is no mediastinal lymphadenopathy by size criteria. JOAN: There is no hilar lymphadenopathy by size criteria. AIRWAY AND ESOPHAGUS: The airway is unremarkable, without endobronchial filling defect. The esophagus is grossly normal. LUNG PARENCHYMA: There is a stable 0.3 cm nodule of the left upper lobe. There is a stable 0.4 cm nodule of the periphery of the right lower lobe PLEURA: No pleural abnormalities are noted. BONES AND SOFT TISSUES: Mild degenerative changes are noted. ABDOMEN/PELVIS: LIVER: The liver is normal in shape, size, contour, and attenuation. BILE DUCTS: There is no intrahepatic or extrahepatic biliary dilatation. GALLBLADDER: The gallbladder is normal, without pericholecystic inflammatory change. PANCREAS: The pancreas is normal, without mass or ductal dilatation. SPLEEN: Normal in size and appearance. UPPER GI TRACT: Evaluation of the gastrointestinal tract is limited by incomplete gastric distention. The upper GI tract is unremarkable. SMALL BOWEL & MESENTERY: The small bowel is normal in contour, course, and caliber. There is no obstruction or dilatation. The intussusception noted on the previous examination is not visualized on the current examination. COLON: There is polypoid mucosal thickening in the region of the hepatic flexure, best seen on coronal image 35 and axial image 39 ADRENALS: Normal bilaterally. KIDNEYS: There are stable bilateral renal cysts. There is a stable left renal calyceal stone.. BLADDER: The bladder is collapsed and is not well evaluated. PELVIC ORGANS: The pelvic organs are not visualized. AORTA: There is calcific atherosclerotic disease of the abdominal aorta and its branches, without aneurysmal dilatation IVC: Unremarkable LYMPH NODES: There is no lymphadenopathy by size criteria. ABDOMINAL WALL: There is no evidence for abdominal wall hernia. BONES AND SOFT TISSUES: There are mild diffuse degenerative changes. OTHER: None IMPRESSION: 1. STABLE PULMONARY PARENCHYMAL NODULES. 2. POLYPOID MUCOSAL THICKENING OF THE LARGE BOWEL. RECOMMEND CONSIDERATION OF CORRELATION WITH DIRECT VISUALIZATION. 3. ATHEROSCLEROSIS.
[2017-10-31] MEDS: Ferrous Sulfate TAB* 325 MG PO SCH ×2 (10:57→21:31)
[2017-10-31] MEDS: Metoprolol Succinate XL TAB* 25 MG PO SCH ×2 (10:57→21:31)
[2017-10-31] MEDS: Omeprazole CAP* 20 MG PO SCH ×2 (10:57→21:31)
[2017-10-31] MEDS: Dexamethasone IV* 4 MG/ML 1 ML (4 MG) IV SLOW PU SCH ×3 (10:57→21:33)
[2017-10-31] MEDS ORDERED: Atorvastatin* 10 MG TAB PO SCH (18:00)
--- NOTE | 2017-10-31 20:46 | PN ---
Progress Note - Progress Note Date of Service: 10/31/17 SOAP: Subjective: [No change in R arm. No new complaints. Tolerating steroids well. Anxious about treatment plan.] Objective: [ Laboratory Results - last 24 hr 10/31/17 10/31/17 10/31/17 07:33 09:03 09:03 WBC 11.4 H RBC 3.18 L Hgb 8.1 L Hct 26 L MCV 81 MCH 26 L MCHC 32 RDW 22 H Plt Count 491 H D MPV 7.3 L Neut % (Auto) 86.8 H Lymph % (Auto) 9.7 L [place] % (Auto) 3.4 Eos % (Auto) 0 Baso % (Auto) 0.1 Absolute Neuts (auto) 9.9 H Absolute Lymphs (auto) 1.1 Absolute Monos (auto) 0.4 Absolute Eos (auto) 0 Absolute Basos (auto) 0 Absolute Nucleated RBC 0 Nucleated RBC % 0 Sodium 135 Potassium TNP 3.3 L Chloride 107 Carbon Dioxide 17 L Anion Gap 11 BUN 13 Creatinine 0.62 Est GFR ( Amer) 114.8 Est GFR (Non-Af Amer) 94.9 BUN/Creatinine Ratio 21.0 H Glucose 158 H Calcium 7.7 L Total Bilirubin 0.20 AST TNP 12 L ALT 9 Alkaline Phosphatase 65 Total Protein 4.5 L Albumin 2.4 L Globulin TNP Albumin/Globulin Ratio TNP Acetaminophen (Tylenol Tab*) 650 mg PO Q4H PRN PRN Reason: FEVER/PAIN Atorvastatin Calcium (Lipitor*) 10 mg PO QPM [facility]; Protocol Last Admin: 10/31/17 18:18 Dose: 10 mg Dexamethasone Sodium Phosphate (Decadron Iv*) 8 mg IV SLOW PU TID [facility] Last Admin: 10/31/17 15:18 Dose: 8 mg Ferrous Sulfate (Ferrous Sulfate Tab*) 325 mg PO BID [facility] Last Admin: 10/31/17 10:57 Dose: 325 mg Metoprolol Succinate (Toprol Xl Tab*) 25 mg PO BID [facility] Last Admin: 10/31/17 10:57 Dose: 25 mg Omeprazole (Prilosec Cap*) 20 mg PO BID [facility] Last Admin: 10/31/17 10:57 Dose: 20 mg Vital Signs: Temp Pulse Resp BP Pulse Ox 98.3 F 68 16 135/60 97 10/31/17 19:27 10/31/17 19:27 10/31/17 19:27 10/31/17 19:27 10/31/17 19:27 Exam Gen: Relatively well appearing 72 yo female in NAD. Accompanied by VICKIE HEENT: MMM, no thrush CV: RRR no m/r/g Resp: lungs CTA, no w/c/r Abd: soft, non TTP Ext: flaccid RUE with associated edema Neuro: unable to shrug R shoulder, no movement of RUE Skin: no concerning rashes or lesions] Assessment: [72 yo female with h/o stage IIC melanoma fully excised Apr 2017 who presented with flaccid paralysis of the RUE with multiple focal brain metastases appreciated on MRI.] Plan: [1. Brain metastases - likely recurrence of melanoma - CT C/A/P shows polypoid thickening of the colon without associated abdominal LAD or other metastatic disease - appreciate input from radiation oncology and neurosurgery - plan at this time is to proceed with gamma knife at [facility] next week - urgently start BRAF inhibitor - cont IV dexamethasone 8 mg tid 2. Superficial venous thrombus - short segment occlusion of R basilic vein at the level of the elbow - no anticoagulation at this time due to high risk of bleeding 3. Recent GI bleed - polypoid thickening of colon on CT - patient requires colonoscopy in near future, but she is overwhelmed by new diagnosis and refused endoscopy at recent admission - cont PPI]
--- NOTE | 2017-11-01 03:17 | RADMED ---
CC: Dr. 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 PERFORMANCE STATUS: ECOG 2. HISTORY OF PRESENT ILLNESS: Karolina Ellis is a 72-year-old woman who presented with bleeding pigmented lesion on the left chest wall treated with initial biopsy confirming melanoma with high-risk features. She underwent subsequent wide local excision, sentinel lymph node biopsy, as well as radiographic staging with no evidence of regional or distant metastatic disease. She had an episode 1 month ago of severe anemia requiring hospitalization, and approximately 1 week ago noted weakness of the right arm and swelling which progressed. When she returned for a follow up visit she was noted to have plegia of the right arm, and MRI of the brain was obtained on 07/12 identifying multiple enhancing lesions consistent with brain metastases with some main concerning lesions involving the left frontal lobe along the motor strip, left anterior frontal lobe, and right occipital lobe with multiple additional subcentimeter enhancing lesions identified including a lesion in the brain stem in proximity to the cerebral aqueduct. She is admitted, placed on high-dose dexamethasone, and is referred for Radiation Oncology consultation regarding management of newly discovered brain metastases. She has remained relatively healthy other than these recent episodes, has had some low-level headaches, remains active and ambulatory, performing normal daily activities until very recently. PAST MEDICAL HISTORY: Melanoma as in history of present illness. History of hyperlipidemia and hypertension. MEDICATIONS: As per the inpatient record include: 1. Tylenol. 2. Lipitor. 3. Dexamethasone. 4. Iron. 5. Toprol. 6. Prilosec. ALLERGIES: EGGS. No known drug allergies. FAMILY HISTORY: No history of malignancy reported in her first-degree relatives. SOCIAL HISTORY: She is a former smoker, having quit in the relatively distant past, and does not drink a substantial amount of alcohol. REVIEW OF SYSTEMS: As in the history of present illness, otherwise a complete review of systems is obtained from the patient, negative for additional significant findings. PHYSICAL EXAMINATION: Vital Signs: Temperature 98.5, pulse rate 75, respiratory rate 16, oxygen saturation 95%, blood pressure 123/75. General: She is awake, alert, and oriented in no acute distress. Normocephalic and atraumatic. Sclerae are anicteric. Neck is supple. Full range of motion. Midline trachea. No palpable on the neck or thyroid. Lungs: Clear to auscultation bilaterally. Cardiovascular: S1 and S2 regular. Abdomen is soft and nontender. No masses, no organomegaly. Extremities: Some edema in the distal left lower extremity over the past month or more as well as extremity edema and plegia in the right upper extremity. Neurologic: Cranial nerves II through XII are intact. Strength is absent in the right upper extremity distal to proximal, otherwise intact resistance, full in the proximal and distal muscle groups in the left upper extremity as well as the bilateral lower extremities. PATHOLOGY AND RADIOLOGY: Reviewed, as in the history of present illness. ASSESSMENT AND PLAN: Karolina Ellis is a 72-year-old woman with high-risk cutaneous melanoma status post surgery approximately 6 months ago, now with multiple enhancing lesions in the brain consistent with brain metastases. I did review her history as well as the pathologic and radiographic findings, I discussed at some length with the patient and her family as they are already well informed and familiar. We reviewed her situation in detail with high suspicion for brain metastases from melanoma, although she has no evidence for active extracranial malignancy including repeat CT of the chest, abdomen, and pelvis performed earlier today, 10/31/17. We discussed considerations for biopsy for pathological confirmation, and with concern for the deep and eloquent nature of the specific lesion as well as the high level of suspicion and the desire to avoid invasive procedures, she would be a candidate for empirical therapy based on suspected brain metastases from melanoma with some level of uncertainty if pathology is not confirmed. With regard to management options, I compared and contrasted initial approach with whole brain radiation therapy as well as stereotactic radiosurgery. I explained the logistics and rationale for these treatments, risks, benefits, and alternatives as well as acute and intermodal customer service frequent and uncommon toxicities. Her brain MRI has been reviewed by Dr. Martinez at [facility] for this opinion as well. Typically with multiple lesions whole brain radiation therapy has been a primary option. Melanoma, is often considered radio-resistant to standard palliative doses, and with a significant extent of disease whole brain radiation therapy is limited as well as potentially more toxic than radiosurgery. There is substantial evidence showing efficacy of Gamma Knife radiosurgery for melanoma and after review with Dr. Martinez, he does feel that she would be a candidate for Gamma Knife radiosurgery, Depite the larger size of the left sided lesions. I compared and contrasted these treatments in detail , and answered the patient's and her families questions to the best of my ability. I do wonder if there is some potential role for additional systemic therapy following local treatment for brain metastases in her situation which I will defer to her oncologist, Dr. Goodson. She seems quite overwhelmed, and did not make any final decision regarding treatment but does seem inclined to consider Gamma Knife. She tentatively has a treatment spot held for 11/06/17. I will follow up with her tomorrow for additional discussion and potentially for treatment planning, and I invited her to contact me with any additional questions or concerns. Thank you for giving me the opportunity to participate in the care of this very pleasant patient. [id number]/[facility] #: [id number] GREGORIO
[2017-11-01] MEDS ORDERED: diPHENhydraMINE PO* 50 MG PO ONE (10:00)
[2017-11-01] MEDS: Omeprazole CAP* 20 MG PO SCH (10:20)
[2017-11-01] MEDS: Metoprolol Succinate XL TAB* 25 MG PO SCH (10:20)
[2017-11-01] MEDS: Ferrous Sulfate TAB* 325 MG PO SCH (10:20)
[2017-11-01 12:30] LABS: Hematocrit 26 % (35-47); Hemoglobin 7.9 g/dl (12.0-16.0); Mean Corpuscular HGB Conc 31 g/dl (31-36); Mean Corpuscular Hemoglobin 25 pg (27-31); Mean Corpuscular Volume 81 fL (80-97); Mean Platelet Volume 7.1 um3 (7.4-10.4); Platelet Count 606 10^3/ul (150-450); Red Blood Count 3.15 10^6/ul (4.00-5.40); Red Cell Distribution Width 21 % (10.5-15); White Blood Count 22.2 10^3/ul (3.5-10.8)
[2017-11-01 12:54] LABS: EGFR Non-African American 100.5 (>60)
[2017-11-01 12:56] LABS: ABS Basophils 0 10^3/ul (0-0.2); ABS Eosinophils 0 10^3/ul (0-0.6); ABS Lymphocytes 1.9 10^3/ul (1.0-4.8); ABS Monocytes 1.9 10^3/ul (0-0.8); ABS Neutrophils 18.4 10^3/ul (1.5-7.7); ABS Nucleated RBC 0 10^3/ul; Eosinophil % 0 % (0-6); Lymphocyte % 8.4 % (25-47); Nucleated Red Blood Cells % 0
[2017-11-01 13:15] VITALS: BP 132/62
--- NOTE | 2017-11-01 13:38 | PN ---
Progress Note - Progress Note Date of Service: 11/01/17 SOAP: Subjective: []Better. Can move arm some. Does not like Dex, anxious. No TERRELL. No abd pain, bowls moving well. Acetaminophen (Tylenol Tab*) 650 mg PO Q4H PRN PRN Reason: FEVER/PAIN Atorvastatin Calcium (Lipitor*) 10 mg PO QPM [facility]; Protocol Last Admin: 10/31/17 18:18 Dose: 10 mg Dexamethasone Sodium Phosphate (Decadron Iv*) 8 mg IV SLOW PU TID [facility] Last Admin: 10/31/17 21:33 Dose: 8 mg Ferrous Sulfate (Ferrous Sulfate Tab*) 325 mg PO BID [facility] Last Admin: 11/01/17 10:20 Dose: 325 mg Metoprolol Succinate (Toprol Xl Tab*) 25 mg PO BID [facility] Last Admin: 11/01/17 10:20 Dose: 25 mg Omeprazole (Prilosec Cap*) 20 mg PO BID [facility] Last Admin: 11/01/17 10:20 Dose: 20 mg Objective: [] Vital Signs Temp Pulse Resp BP Pulse Ox 98.5 F 59 18 132/62 99 11/01/17 11:27 11/01/17 11:27 11/01/17 11:27 11/01/17 11:27 11/01/17 11:27 Exam Gen: Relatively well appearing 72 yo female in NAD. A HEENT: MMM, no thrush CV: RRR no m/r/g Resp: lungs CTA, no w/c/r Abd: soft, non TTP Ext: flaccid RUE with associated edema Neuro: improved movement right shoulder and arm but still cannot move hand. Skin: no concerning rashes or lesions] CT - colon mass, likely melanoma. No other disease Assessment: [72 yo female with h/o stage IIC melanoma fully excised Apr 2017 who presented with flaccid paralysis of the RUE with multiple focal brain metastases appreciated on MRI and CT with colon mass.] Plan: [1. Brain metastases - likely recurrence of melanoma - Will change Dex to 6 mg am and at dinner. Must take every day. 2. Superficial venous thrombus - short segment occlusion of R basilic vein at the level of the elbow - no anticoagulation at this time due to high risk of bleeding 3. Recent GI bleed. I suspect melanoma lesion in colon. - strong recommendation for colonoscopy, will arrange as out patient. - Tx PRBC 1 U today - Plan IV iron next week, Venofer 4. Melanoma. Start therapy for B-annie DANYELL
[2017-11-01] MEDS: Dexamethasone IV* 4 MG/ML 1 ML (4 MG) IV SLOW PU SCH ×2 (17:22→19:19)
--- NOTE | 2017-11-01 19:11 | PN ---
Progress Note - Progress Note Date of Service: 11/01/17 SOAP: Subjective: [No events On. Receiving blood tx. Son at bedside. Objective: []AAOx3 SUSANNA, CN II-XII grossly intact Motor 4-5/5 except RUE 2-3/5 Sensory grossly intact to light touch Assessment: []72 yo f hx melanoma, multiple brain lesions Plan: []Discussed in details with the patient and her son regarding treatment options and possibility of surgical intervention. Patient understands and would like to proceed with SRS on in [place]. Thank you for allowing us to participate in the care of this patient. Will be available if needed. Corky Monzon MD
--- NOTE | 2017-11-01 22:07 | DS ---
DISCHARGE SUMMARY: DATE OF ADMISSION: 10/30/17 DATE OF DISCHARGE: 11/01/17 DISCHARGE DIAGNOSES: 1. Metastatic melanoma. 2. NATURAL RESOURCES MANAGER metastases. 3. GI bleed secondary to colon mass. 4. Hypertension. HOSPITAL COURSE: She came in yesterday after presenting to clinic with new weakness in the right upp er extremity. MRI showed multiple bone lesions and associated edema. She was placed on IV dexametha sone and has had consultation by Dr. Renae. She has a history of GI bleed and was found again to be anemic with hemoglobin 7.9. CT scan of chest, abdomen and pelvis showed a polypoid mass in the colo n, possible metastatic melanoma. She has done well over the last 2 days with some improvement in her right arm pain. She has been stable on steroids, eating well. No focal aches or pains. No fevers or chills. Very anxious to go home. Plan will be to transfuse 1 unit of packed red blood cells today for anemia and continued GI bleed. He will then be discharged home with followup with me on Saturday morning at 8 a.m. We will plan IV ir on through next week with Venofer 20 mg daily. She is scheduled by Dr. Renae to be seen at [place] on 11/06/17, for gamma knife. We will discuss the need for a systemic therapy for her melanoma and chay fowler will plan on BRAF targeted treatment. Prescriptions will be started today from the office. That chay ill likely take about a week before she has them in hand. Plan will be oral therapy for her melanoma with close followup and management of NATURAL RESOURCES MANAGER disease. We also discussed the importance of having a path ologic diagnosis of metastasis. I strongly recommend she have a colonoscopy, which will be planned w mallyin the next 2 weeks. She is agreeing to procedure today. She has had some side effects with dexa methasone including anxiety. We will reduce the dose to 6 mg p.o. b.i.d., but I stressed that she mu st take that consistently and to call our office with any additional problems with the medication. S he agreed to that as well. DISCHARGE MEDICATIONS: 1. Ferrous sulfate 325 b.i.d. 2. Metoprolol 25 XL daily. 3. Omeprazole 20 mg p.o. b.i.d. 4. Pravastatin 40 mg p.o. daily. 5. Dexamethasone 6 mg p.o. b.i.d. FOLLOWUP: Saturday. [id number]/[facility] #: [id number]
--- NOTE | 2017-11-01 22:33 | CONS ---
CONSULTATION NOTE: DATE OF ADMISSION: 10/30/17. DATE OF CONSULTATION: 10/31/17. HISTORY OF PRESENT ILLNESS: The patient is a very pleasant 72-year-old female with a history of hypertension, hyperlipidemia, and history of melanoma that was initially resected in February with reexcision with lymph node biopsy in April. At that time, the patient was under surveillance and underwent a PET scan in July 2017 without evidence of disease. The patient had hospitalization a few weeks ago with weakness, and was found to have anemia and seemed to be related to GI blood loss. She received 2 units of red blood cells and she was followed by Oncology. The patient presented to Oncology office with 2 or 3 days of history of complete right upper extremity paralysis. For this, [facility] was referred for an MRI of her brain, which revealed multiple lesions possible metastatic including a left large frontal lesion extended to the area of the insula and a left frontoparietal lesion extended to the motor cortex with mass effect. The patient was consulted and was started on Tegaderm, requested to see the patient by the Oncology Service for possibility of surgical resection. The patient reports that she has no other complaints other than the weakness of the right upper extremity. It was started gradually. She reports that her feeling is preserved. She denies any seizures. She denies any visual or speech difficulties. She denies any difficulties with her walking. Denies any problems with her balance. She denies any urinary or GI incontinence. PAST MEDICAL HISTORY: Stage IIC melanoma, BRAF mutant with excision from the left breast, hypertension, hyperlipidemia, GI bleed. PAST SURGICAL HISTORY: , benign cyst. HOME MEDICATIONS: The patient was on: 1. Metoprolol. 2. Pravastatin. 3. Ferrous sulfate. 4. Omeprazole. FAMILY HISTORY: No history of malignancy. Positive for diabetes and hypertension. SOCIAL HISTORY: The patient is a . She lives alone. She has 2 sons. Tobacco negative. She is a prior smoker. Alcohol negative. Recreational drug use negative. PHYSICAL EXAM: On physical examination, the patient is not in acute distress. She is awake, alert, oriented x3. Her pupils are equal and reactive. Cranial nerves II through XII are grossly intact. Motor 4-5/5 in the lower extremities with the exception of the right upper extremity with 0 to 5. Sensory is grossly intact to light touch. Deep tendon reflexes +1 in the lower extremities , 1+ on the left upper extremity, +2 on the right upper extremity. Clonus negative. Babinski negative. Ledezma is negative. DIAGNOSTIC STUDIES/LAB DATA: The patient had an MRI of the brain with contrast revealing multiple metastatic lesions including a left frontal lesion extending into the insular area and also a left frontoparietal lesion extending on the motor cortex with surrounding edema. ASSESSMENT: The patient is a pleasant 72-year-old female with a history of melanoma with the presentation of right upper extremity paralysis with MRI findings consistent with multiple lesions possible metastatic. PLAN/RECOMMENDATIONS: Based on her imaging on presentation as well as her prognosis, we discussed with the patient MRI findings and discussed the role of possible surgical intervention in forms of diagnosis and decompression of possibility lesion over the motor cortex, which most likely accounts for her paralysis. We also discussed the possibility of surgical intervention for the left frontal lesion if she would not be possibly treated with radiosurgery. The patient understands non-operative and operative treatment options as well as the role of whole brain radiation and radiosurgery. At this point, she would like to avoid any surgical intervention, understanding the possible outcome of its treatment option and her decision. Thank you for allowing us to participate in the care of this patient. Please do not hesitate to contact our office in case you have any further questions or concerns regarding the care of this patient. [id number]/[facility] #: [id number] GREGORIO
== END 2017-11-01 19:25 | disposition home or self-care (01) | DRG 55 ==
LOC: MED 18:54
PROVIDERS: ADMIT Internal Medicine Hematology & Oncology; ATTEND Internal Medicine Hematology & Oncology
PROC: 30233N1 Transfusion of Nonautologous Red Blood Cells into Peripheral Vein, Percutaneous Approach (ICD-10-PCS; principal; 2017-11-01)
DX: C79.31 Secondary malignant neoplasm of brain (principal); I82.611 Acute embolism and thrombosis of superficial veins of right upper extremity; K92.2 Gastrointestinal hemorrhage, unspecified; C78.5 Secondary malignant neoplasm of large intestine and rectum; I10 Essential (primary) hypertension; E78.5 Hyperlipidemia, unspecified; D50.9 Iron deficiency anemia, unspecified; C43.9 Malignant melanoma of skin, unspecified; G83.21 Monoplegia of upper limb affecting right dominant side; F41.9 Anxiety disorder, unspecified; T38.0X5A Adverse effect of glucocorticoids and synthetic analogues, initial encounter; Y92.239 Unspecified place in hospital as the place of occurrence of the external cause; Z83.3 Family history of diabetes mellitus; Z82.49 Family history of ischemic heart disease and other diseases of the circulatory system; Z87.891 Personal history of nicotine dependence
CPT/HCPCS: 36415; 70553; 71260; 74177; 80053; 83615; 84155; 85025; 86850; 86900; 86901; 86922; 99211; 99223; 99232; 99239; A9270-GY; A9579; G0463; J1100; P9040; Q9967

== ENCOUNTER 2018-04-02 15:37 | Inpatient (IN) | payer MEDICARE, BC ==
[2018-04-02] MEDS ORDERED: Magnesium Sulf 4 GM/100 ML IV* 4,000 MG/100 ML BAG IVPB ONE (17:00)
[2018-04-02] MEDS: KCL 10 MEQ/50 ML IVPREMIX* 10 MEQ/50 ML BAG IV SCH ×3 (17:58→21:53)
[2018-04-02] MEDS: NS 0.9% 1000 ML** 1,000 ML IV SCH (17:59)
[2018-04-02] MEDS: Magnesium Oxide TAB* 400 MG PO SCH (20:31)
[2018-04-02] MEDS: ALPRAZolam TAB* 0.25 MG PO SCH (20:31)
[2018-04-02] MEDS: Heparin VIAL(*) 5000 UNITS/ML VIAL (FIVE THOUSAND) SUBCUT SCH (21:54)
[2018-04-03] MEDS: Acetaminophen TAB* 325 MG PO PRN (00:27)
[2018-04-03] MEDS ORDERED: Cefepime 2 GM in Dextrose(*) 2 GM/50 ML BAG IV SCH (04:00)
[2018-04-03] MEDS: NS 0.9% 1000 ML** 1,000 ML IV SCH ×3 (04:21→21:05)
[2018-04-03] MEDS: Heparin VIAL(*) 5000 UNITS/ML VIAL (FIVE THOUSAND) SUBCUT SCH ×3 (05:56→21:05)
[2018-04-03 06:47] LABS: Hematocrit 31 % (35-47); Hemoglobin 10.3 g/dl (12.0-16.0); Mean Corpuscular HGB Conc 33 g/dl (31-36); Mean Corpuscular Hemoglobin 29 pg (27-31); Mean Corpuscular Volume 86 fL (80-97); Mean Platelet Volume 7.7 fL (7.4-10.4); Platelet Count 226 10^3/ul (150-450); Red Cell Distribution Width 18 % (10.5-15); White Blood Count 3.8 10^3/ul (3.5-10.8)
[2018-04-03 07:04] LABS: Albumin 2.6 g/dL (3.2-5.2); Albumin/Globulin Ratio 0.8 (1-3); BUN/Creatinine Ratio 11.7 (8-20); Calcium 9.7 mg/dL (8.6-10.3); EGFR African American 14.8 (>60); EGFR Non-African American 12.2 (>60); Globulin 3.1 g/dL (2-4); Total Bilirubin 0.7 mg/dL (0.2-1.0); Total Protein 5.7 g/dL (6.4-8.9)
[2018-04-03 07:10] LABS: Potassium 2.6 mmol/L (3.5-5.0)
[2018-04-03 07:30] LABS: ABS Basophils 0 10^3/ul (0-0.2); ABS Eosinophils 0 10^3/ul (0-0.6); ABS Lymphocytes 0.8 10^3/ul (1.0-4.8); ABS Monocytes 0.6 10^3/ul (0-0.8); ABS Neutrophils 2.3 10^3/ul (1.5-7.7)
[2018-04-03 07:33] LABS: ABS Basophils 0 10^3/ul (0-0.2); ABS Eosinophils 0 10^3/ul (0-0.6); ABS Neutrophils 2.7 10^3/ul (1.5-7.7); Lymphocytes % 17 %; Monocytes % 13 %; Neutrophil % 70 %
[2018-04-03] MEDS: KCL 20 MEQ/100 ML IVPREMIX* 20 MEQ/100 ML BAG IV SCH ×3 (08:41→13:18)
[2018-04-03] MEDS: Magnesium Oxide TAB* 400 MG PO SCH (08:43)
[2018-04-03] MEDS: Potassium Chlor TAB* 20 MEQ TAB.ER PO SCH (08:43)
[2018-04-03] MEDS ORDERED: Metoprolol Succinate XL TAB* 25 MG PO SCH (09:00)
[2018-04-03 09:41] LABS: Phosphorus 5.3 mg/dL (2.5-5.0); Uric Acid 5.5 mg/dL (2.3-6.6)
--- NOTE | 2018-04-03 09:53 | PN ---
Progress Note - Progress Note Date of Service: 04/03/18 SOAP: Subjective: feels better today but still tremulous and very weak. Objective: Vital Signs Temp Pulse Resp BP Pulse Ox 96.3 F 53 20 109/62 96 04/03/18 07:37 04/03/18 07:37 04/03/18 08:52 04/03/18 07:37 04/03/18 07:37 lying flat in bed in nad perr eomi op very dry CTA bl s1 s2 w occ ectopy soft nt +Bs no le edema tremor RUE globally weak oriented x 3 but slow to answer Laboratory Results - last 24 hr 04/03/18 04/03/18 04/03/18 05:19 06:30 06:30 WBC 3.8 RBC 3.60 L Hgb 10.3 L Hct 31 L MCV 86 MCH 29 MCHC 33 RDW 18 H Plt Count 226 MPV 7.7 Neut % (Auto) Not Reportable Lymph % (Auto) Not Reportable [place] % (Auto) Not Reportable Eos % (Auto) Not Reportable Baso % (Auto) Not Reportable Absolute Neuts (auto) 2.3 Absolute Lymphs (auto) 0.8 L Absolute Monos (auto) 0.6 Absolute Eos (auto) 0 Absolute Basos (auto) 0 Absolute Nucleated RBC Not Reportable Neutrophils % 70 Lymphocytes % 17 Monocytes % 13 Eosinophils % 0 Basophils % 0 Nucleated RBC % Not Reportable Abs Neuts (Manual) 2.7 Abs Lymphs (Manual) 0.6 L Abs Monocytes (Manual) 0.5 Absolute Eos (Manual) 0 Abs Basophils (Manual) 0 Normal RBC Morphology Not Reportable Hypochromasia 1+ Anisocytosis 1+ Sodium 134 L Potassium 2.6 L* Chloride 102 Carbon Dioxide 22 Anion Gap 10 BUN 43 H Creatinine 3.66 H Est GFR ( Amer) 14.8 Est GFR (Non-Af Amer) 12.2 BUN/Creatinine Ratio 11.7 Glucose 102 H Uric Acid 5.5 Calcium 9.7 Phosphorus 5.3 H Magnesium 2.7 Total Bilirubin 0.70 AST 20 ALT 17 Alkaline Phosphatase 309 H Total Protein 5.7 L Albumin 2.6 L Globulin 3.1 Albumin/Globulin Ratio 0.8 L FeNa--17% Acetaminophen (Tylenol Tab*) 650 mg PO Q4H PRN PRN Reason: FEVER/PAIN Last Admin: 04/03/18 00:27 Dose: 650 mg Alprazolam (Xanax Tab*) 0.25 mg PO BEDTIME [facility] Last Admin: 04/02/18 20:31 Dose: 0.25 mg Docusate Sodium (Colace Cap*) 200 mg PO BEDTIME PRN PRN Reason: CONSTIPATION Heparin Sodium (Porcine) (Heparin Vial(*)) 5,000 units SUBCUT Q8HR [facility] Last Admin: 04/03/18 05:56 Dose: 5,000 units Sodium Chloride (Ns 0.9% 1000 Ml) 1,000 mls @ 125 mls/hr IV PER RATE [facility] Last Admin: 04/03/18 04:21 Dose: 125 mls/hr Cefepime HCl (Maxipime 1 Gm In Dextrose Duplex (*)) 1 gm in 50 mls @ 100 mls/ hr IV Q24H [facility] Potassium Chloride (Potassium Chloride 20 Meq/100 Ml Ivpremix*) 20 meq in 100 mls @ 50 mls/hr IV Q2H [facility] Stop: 04/03/18 13:59 Last Admin: 04/03/18 08:41 Dose: 50 mls/hr Magnesium Oxide (Magox 400 Tab*) 400 mg PO BID [facility] Last Admin: 04/03/18 08:43 Dose: 400 mg Metoprolol Succinate (Toprol Xl Tab*) 25 mg PO DAILY [facility] Last Admin: 04/03/18 08:43 Dose: 25 mg Potassium Chloride (Klor Con Er Tab*) 20 meq PO DAILY [facility] Last Admin: 04/03/18 08:43 Dose: 20 meq Senna (Senokot Tab*) 2 tab PO BEDTIME PRN PRN Reason: CONSTIPATION Assessment: 72 yo F w metastatic melanoma recently started on encorafenib/binimetineb on presenting with fevers, weakness, tremors and confusion and found to be in acute renal failure with a FeNa of 17% most consistent with ATN. Etiology of ATN unclear but concerning for either sepsis or drug induced. Does appear to be a true renal failure and not just spurious elevation of creatinine. Plan: -hold drugs -cont hydration, monitor urine output -start phosLo if phos >6 -replete KCL as seems to be wasting -cont cefepime pending cultures -sinus arrhythmia, likely related to metabolic disarray, cont tele full code
[2018-04-03] MEDS ORDERED: Cefepime 1 GM in Dextrose(*) 1 GM/50 ML q12h (Duplex) IV SCH (16:00)
[2018-04-03] MEDS: ALPRAZolam TAB* 0.25 MG PO SCH (21:04)
[2018-04-04] MEDS: NS 0.9% 1000 ML** 1,000 ML IV SCH (04:23)
[2018-04-04] MEDS: Heparin VIAL(*) 5000 UNITS/ML VIAL (FIVE THOUSAND) SUBCUT SCH ×3 (05:30→20:56)
[2018-04-04 05:37] LABS: ABS Basophils 0 10^3/ul (0-0.2); ABS Eosinophils 0.2 10^3/ul (0-0.6); ABS Lymphocytes 1.2 10^3/ul (1.0-4.8); ABS Monocytes 0.7 10^3/ul (0-0.8); ABS Neutrophils 2.2 10^3/ul (1.5-7.7); ABS Nucleated RBC 0 10^3/ul; Eosinophil % 4.3 %; Hematocrit 33 % (35-47); Hemoglobin 11.1 g/dl (12.0-16.0); Lymphocyte % 28.2 %; Mean Corpuscular HGB Conc 34 g/dl (31-36); Mean Corpuscular Hemoglobin 28 pg (27-31); Mean Corpuscular Volume 85 fL (80-97); Mean Platelet Volume 7.6 fL (7.4-10.4); Nucleated Red Blood Cells % 0; Platelet Count 298 10^3/ul (150-450); Red Blood Count 3.91 10^6/ul (4.00-5.40); Red Cell Distribution Width 18 % (10.5-15); White Blood Count 4.2 10^3/ul (3.5-10.8)
[2018-04-04 05:55] LABS: Albumin 2.9 g/dL (3.2-5.2); Albumin/Globulin Ratio 0.9 (1-3); Calcium 9.6 mg/dL (8.6-10.3); EGFR African American 25.3 (>60); EGFR Non-African American 20.9 (>60); Globulin 3.3 g/dL (2-4); Phosphorus 3.2 mg/dL (2.5-5.0); Potassium 2.9 mmol/L (3.5-5.0); Total Bilirubin 0.6 mg/dL (0.2-1.0); Total Protein 6.2 g/dL (6.4-8.9)
[2018-04-04] MEDS ORDERED: Magnesium Sulfate 2 GM IV* 2 GM/50 ML BAG IVPB ONE (08:11)
[2018-04-04] MEDS: Potassium Chlor TAB* 20 MEQ TAB.ER PO SCH (09:20)
[2018-04-04] MEDS: KCL 10 MEQ/50 ML IVPREMIX* 10 MEQ/50 ML BAG IV SCH ×3 (11:38→14:27)
[2018-04-04] MEDS: NS 0.9% w/ 40 Meq KCL 1000 ML* 1,000 ML IV SCH (14:26)
--- NOTE | 2018-04-04 16:21 | PN ---
Progress Note - Progress Note Date of Service: 04/04/18 SOAP: Subjective: [Patient developed some confusion and visual hallucinations overnight. She reports feeling better and recalls the hallucinations. Objective: [ Laboratory Results - last 24 hr 04/03/18 04/04/18 04/04/18 06:30 05:26 05:26 WBC 4.2 RBC 3.91 L Hgb 11.1 L Hct 33 L MCV 85 MCH 28 MCHC 34 RDW 18 H Plt Count 298 MPV 7.6 Neut % (Auto) 50.9 Lymph % (Auto) 28.2 [place] % (Auto) 16.3 Eos % (Auto) 4.3 Baso % (Auto) 0.3 Absolute Neuts (auto) 2.2 Absolute Lymphs (auto) 1.2 Absolute Monos (auto) 0.7 Absolute Eos (auto) 0.2 Absolute Basos (auto) 0 Absolute Nucleated RBC 0 Nucleated RBC % 0 Hem Pathologist Commnt Sodium 136 Potassium 2.9 L Chloride 106 Carbon Dioxide 23 Anion Gap 7 BUN 30 H Creatinine 2.30 H Est GFR ( Amer) 25.3 Est GFR (Non-Af Amer) 20.9 BUN/Creatinine Ratio 13.0 Glucose 98 Calcium 9.6 Phosphorus 3.2 Magnesium 2.0 Total Bilirubin 0.60 AST 19 ALT 18 Alkaline Phosphatase 275 H Total Protein 6.2 L Albumin 2.9 L Globulin 3.3 Albumin/Globulin Ratio 0.9 L Acetaminophen (Tylenol Tab*) 650 mg PO Q4H PRN PRN Reason: FEVER/PAIN Last Admin: 04/03/18 00:27 Dose: 650 mg Alprazolam (Xanax Tab*) 0.25 mg PO BEDTIME [facility] Last Admin: 04/03/18 21:04 Dose: 0.25 mg Docusate Sodium (Colace Cap*) 200 mg PO BEDTIME PRN PRN Reason: CONSTIPATION Heparin Sodium (Porcine) (Heparin Vial(*)) 5,000 units SUBCUT Q8HR [facility] Last Admin: 04/04/18 14:26 Dose: 5,000 units Potassium Chloride/Sodium Chloride (Ns 0.9% W/ 40 Meq Kcl 1000 Ml*) 1,000 mls @ 75 mls/hr IV PER RATE [facility] Last Admin: 04/04/18 14:26 Dose: 75 mls/hr Potassium Chloride (Klor Con Er Tab*) 20 meq PO DAILY [facility] Last Admin: 04/04/18 09:20 Dose: 20 meq Senna (Senokot Tab*) 2 tab PO BEDTIME PRN PRN Reason: CONSTIPATION Vital Signs: Temp Pulse Resp BP Pulse Ox 98.0 F 72 24 142/78 97 04/04/18 15:27 04/04/18 15:27 04/04/18 15:27 04/04/18 15:27 04/04/18 15:27 Exam: Gen: 72 yo female in NAD, accompanied by her son HEENT: mildly dry MM CV: RRR, no m/r/g Resp: CTA, no w/c/r Abd: soft, nonTTP Ext: trace LE edema Psych: seems slightly confused, but alert and appropriate in conversation Assessment: [72 yo female with metastatic melanoma who was recently started on encorafenib/ binimetinib who was admitted with profound weakness, tremor, fever and GILSON with hyponatremia, hypokalemia and hypomagnesemia. FeNa measured at 17%, suggestive of ATN secondary to sepsis v drug effect.] Plan: [1. GILSON secondary to ATN - cultures negative with no further fevers, so this seems unlikely to be related to sepsis and more likely to be drug related - noted improvement in Cr today - urine output is very high with high urine sodium and persistent hypokalemia likely due to renal wasting - 24h urine pending - cont IV fluids and electrolyte repletion 2. Delirium - most likely due to acute illness and hospitalization - she has known brain metastases however previously treated with gammaknife - renal function will not allow for contrasted study today, but will start with non contrast MRI and follow up with contrasted study in a couple days when renal function improves 3. Melanoma - hold therapy at this time Dispo: cont inpatient level care, anticipate dc home where she lives with her son in 2-3 days]
[2018-04-04 16:58] LABS: Urine Creatinine Concentration 27.19 mg/dL
[2018-04-04] MEDS: ALPRAZolam TAB* 0.25 MG PO SCH (20:56)
[2018-04-04] MEDS: Senna TAB PO PRN (21:00)
[2018-04-04] MEDS: Docusate CAP* 100 MG PO PRN (21:00)
[2018-04-05] MEDS ORDERED: Haloperidol TAB* 1 MG PO ONE (02:35)
[2018-04-05] MEDS: Heparin VIAL(*) 5000 UNITS/ML VIAL (FIVE THOUSAND) SUBCUT SCH ×3 (05:26→20:29)
[2018-04-05] MEDS: Potassium Chlor TAB* 20 MEQ TAB.ER PO SCH (07:18)
[2018-04-05] MEDS: NS 0.9% w/ 40 Meq KCL 1000 ML* 1,000 ML IV SCH ×2 (07:26→20:34)
[2018-04-05] MEDS: Metoprolol Succinate XL TAB* 25 MG PO SCH (07:29)
--- NOTE | 2018-04-05 07:29 | PN ---
Progress Note - Progress Note Date of Service: 04/05/18 SOAP: Subjective: very confused this am and slightly agitated. denies focal complaints Objective: Vital Signs Temp Pulse Resp BP Pulse Ox 98.1 F 74 18 142/76 95 04/05/18 03:28 04/05/18 07:10 04/05/18 07:11 04/05/18 07:10 04/05/18 03:28 sitting up confused and agitated "i dont even have cancer" "no one knows i am here, they will all think i am " perr eomi op moist cta bl tachy w ectopy soft nt +Bs no le edema r arm tremor A+O x 3 however clearly confused about details, agitated Acetaminophen (Tylenol Tab*) 650 mg PO Q4H PRN PRN Reason: FEVER/PAIN Last Admin: 04/03/18 00:27 Dose: 650 mg Alprazolam (Xanax Tab*) 0.25 mg PO BEDTIME [facility] Last Admin: 04/04/18 20:56 Dose: 0.25 mg Docusate Sodium (Colace Cap*) 200 mg PO BEDTIME PRN PRN Reason: CONSTIPATION Last Admin: 04/04/18 21:00 Dose: 200 mg Haloperidol (Haldol Liq*) 1 mg PO Q6H PRN PRN Reason: AGITATION Heparin Sodium (Porcine) (Heparin Vial(*)) 5,000 units SUBCUT Q8HR [facility] Last Admin: 04/05/18 05:26 Dose: Not Given Potassium Chloride/Sodium Chloride (Ns 0.9% W/ 40 Meq Kcl 1000 Ml*) 1,000 mls @ 75 mls/hr IV PER RATE [facility] Last Admin: 04/05/18 07:26 Dose: 75 mls/hr Metoprolol Succinate (Toprol Xl Tab*) 25 mg PO DAILY [facility] Potassium Chloride (Klor Con Er Tab*) 20 meq PO DAILY [facility] Last Admin: 04/05/18 07:18 Dose: 20 meq Senna (Senokot Tab*) 2 tab PO BEDTIME PRN PRN Reason: CONSTIPATION Last Admin: 04/04/18 21:00 Dose: 2 tab Assessment: 72yo female with metastatic melanoma who was recently started on encorafenib/ binimetinib who was admitted with profound weakness, tremor, fever and GILSON with hyponatremia, hypokalemia and hypomagnesemia which all appears to be drug effect. course now complicated by acute delirium of unclear etiology. MRI brain unchanged Plan:' 1. GILSON secondary to ATN - cultures negative with no further fevers, so this seems unlikely to be related to sepsis and more likely to be drug related - noted improvement in Cr today - urine output is very high with high urine sodium and persistent hypokalemia likely due to renal wasting - cont IV fluids and electrolyte repletion 2. Delirium - most likely due to acute illness and hospitalization, though will check ammonia level -need to start haldol for agitation and halucinations, 1:1 safety monitor and frequent reorientation 3.tachyarrythmia: sinus tach w frequent PVCs. metoprolol was held for hypotension and bradycardia. will resume and watch. also electrolyte abnormalities likely exacerbating 4. Melanoma - hold therapy at this time Dispo: cont inpatient level care]
[2018-04-05] MEDS: Haloperidol LIQ* 10 MG/5 ML UDC PO PRN (07:35)
[2018-04-05 08:07] LABS: Hematocrit 34 % (35-47); Hemoglobin 11.4 g/dl (12.0-16.0); Mean Corpuscular HGB Conc 33 g/dl (31-36); Mean Corpuscular Hemoglobin 29 pg (27-31); Mean Corpuscular Volume 86 fL (80-97); Mean Platelet Volume 7.6 fL (7.4-10.4); Platelet Count 321 10^3/ul (150-450); Red Blood Count 3.98 10^6/ul (4.00-5.40); Red Cell Distribution Width 18 % (10.5-15)
[2018-04-05 08:13] LABS: Albumin 3.1 g/dL (3.2-5.2); Albumin/Globulin Ratio 0.9 (1-3); BUN/Creatinine Ratio 11.6 (8-20); Calcium 10.1 mg/dL (8.6-10.3); EGFR African American 42.7 (>60); EGFR Non-African American 35.3 (>60); Globulin 3.5 g/dL (2-4); Potassium 3.2 mmol/L (3.5-5.0); Total Bilirubin 0.6 mg/dL (0.2-1.0); Total Protein 6.6 g/dL (6.4-8.9)
[2018-04-05 09:10] LABS: ABS Basophils 0 10^3/ul (0-0.2); ABS Eosinophils 0.1 10^3/ul (0-0.6); ABS Neutrophils 2.1 10^3/ul (1.5-7.7); Lymphocytes % 30 %; Monocytes % 15 %; Neutrophil % 53 %
[2018-04-05] MEDS: KCL 20 MEQ/100 ML IVPREMIX* 20 MEQ/100 ML BAG IV SCH ×3 (09:21→11:52)
[2018-04-05] MEDS ORDERED: KCL 10 MEQ/50 ML IVPREMIX* 20 MEQ/100 ML BAG IV ONE (12:00)
[2018-04-05] MEDS: ALPRAZolam TAB* 0.25 MG PO SCH (20:30)
[2018-04-06] MEDS: Haloperidol LIQ* 10 MG/5 ML UDC PO PRN ×2 (01:26→08:18)
[2018-04-06] MEDS: Acetaminophen TAB* 325 MG PO PRN (01:56)
[2018-04-06] MEDS: Heparin VIAL(*) 5000 UNITS/ML VIAL (FIVE THOUSAND) SUBCUT SCH (05:21)
[2018-04-06] MEDS: Metoprolol Succinate XL TAB* 25 MG PO SCH (07:13)
[2018-04-06] MEDS: Potassium Chlor TAB* 20 MEQ TAB.ER PO SCH (07:13)
--- NOTE | 2018-04-06 07:25 | PN ---
Progress Note - Progress Note Date of Service: 04/06/18 SOAP: Subjective: much calmer today. feels good. wants to go home Objective: Vital Signs Temp Pulse Resp BP Pulse Ox 97.3 F 74 18 136/72 98 04/06/18 03:34 04/06/18 07:12 04/06/18 07:12 04/06/18 07:12 04/05/18 23:45 sitting up in nad perr eomi op moist cta bl s1 s2 nl, no ectopy today soft nt +Bs trace le edema Acetaminophen (Tylenol Tab*) 650 mg PO Q4H PRN PRN Reason: FEVER/PAIN Last Admin: 04/06/18 01:56 Dose: 650 mg Alprazolam (Xanax Tab*) 0.25 mg PO BEDTIME [facility] Last Admin: 04/05/18 20:30 Dose: 0.25 mg Docusate Sodium (Colace Cap*) 200 mg PO BEDTIME PRN PRN Reason: CONSTIPATION Last Admin: 04/04/18 21:00 Dose: 200 mg Haloperidol (Haldol Liq*) 1 mg PO Q6H PRN PRN Reason: AGITATION Last Admin: 04/06/18 01:26 Dose: 1 mg Heparin Sodium (Porcine) (Heparin Vial(*)) 5,000 units SUBCUT Q8HR [facility] Last Admin: 04/06/18 05:21 Dose: 5,000 units Potassium Chloride/Sodium Chloride (Ns 0.9% W/ 40 Meq Kcl 1000 Ml*) 1,000 mls @ 75 mls/hr IV PER RATE [facility] Last Admin: 04/05/18 20:34 Dose: 75 mls/hr Metoprolol Succinate (Toprol Xl Tab*) 25 mg PO DAILY [facility] Last Admin: 04/06/18 07:13 Dose: 25 mg Potassium Chloride (Klor Con Er Tab*) 20 meq PO DAILY [facility] Last Admin: 04/06/18 07:13 Dose: 20 meq Senna (Senokot Tab*) 2 tab PO BEDTIME PRN PRN Reason: CONSTIPATION Last Admin: 04/04/18 21:00 Dose: 2 tab Assessment: 72yo female with metastatic melanoma who was recently started on encorafenib/ binimetinib who was admitted with profound weakness, tremor, fever and GILSON with hyponatremia, hypokalemia and hypomagnesemia which all appears to be drug effect. course now complicated by acute delirium of unclear etiology, though improving suggesting toxic metabolic encephalopathy Plan:' 1. GILSON secondary to ATN - noted improvement in Cr today - urine output is very high with high urine sodium and persistent hypokalemia likely due to renal wasting - cont IV fluids and electrolyte repletion 2. Delirium - most likely due to acute illness and hospitalization -cont PRN haldol 3.tachyarrythmia: sinus tach w frequent PVCs. resolved with restarting bblocker 4. Melanoma - hold therapy at this time Dispo: cont inpatient level care, anticipate D/C next day or two if potassium improves lovenox dvt prophylaxis]
[2018-04-06] MEDS: Enoxaparin(*) 40 MG/0.4 ML SYR SUBCUT SCH (07:58)
[2018-04-06] MEDS: NS 0.9% w/ 40 Meq KCL 1000 ML* 1,000 ML IV SCH ×2 (10:21→23:45)
[2018-04-06 10:49] LABS: Albumin 3.1 g/dL (3.2-5.2); Calcium 10.3 mg/dL (8.6-10.3); Potassium 4.4 mmol/L (3.5-5.0); Total Bilirubin 0.6 mg/dL (0.2-1.0)
[2018-04-06 10:55] LABS: Albumin/Globulin Ratio 0.9 (1-3); BUN/Creatinine Ratio 11.2 (8-20); EGFR African American 67.7 (>60); EGFR Non-African American 55.9 (>60); Globulin 3.4 g/dL (2-4); Total Protein 6.5 g/dL (6.4-8.9)
[2018-04-06 11:12] LABS: Hematocrit 33 % (35-47); Mean Corpuscular HGB Conc 33 g/dl (31-36); Mean Corpuscular Hemoglobin 28 pg (27-31); Mean Corpuscular Volume 86 fL (80-97); Mean Platelet Volume 8.6 fL (7.4-10.4); Platelet Count 277 10^3/ul (150-450); Red Blood Count 3.87 10^6/ul (4.00-5.40); Red Cell Distribution Width 18 % (10.5-15); White Blood Count 4.4 10^3/ul (3.5-10.8)
[2018-04-06 11:47] LABS: ABS Neutrophils 1.8 10^3/ul (1.5-7.7)
[2018-04-06 11:48] LABS: ABS Basophils 0 10^3/ul (0-0.2); ABS Eosinophils 0.1 10^3/ul (0-0.6); ABS Neutrophils 1.9 10^3/ul (1.5-7.7); Lymphocytes % 35 %; Monocytes % 18 %; Neutrophil % 41 %; Variant Lymph % 3 % (0-6)
[2018-04-06 12:16] LABS: Magnesium 1.6 mg/dL (1.9-2.7)
[2018-04-06 13:59] LABS: ABS Basophils 0.1 10^3/ul (0-0.2); ABS Eosinophils 0.2 10^3/ul (0-0.6); ABS Lymphocytes 1.5 10^3/ul (1.0-4.8); ABS Monocytes 0.8 10^3/ul (0-0.8); ABS Nucleated RBC 0 10^3/ul; Eosinophil % 4.6 %; Lymphocyte % 33.1 %; Nucleated Red Blood Cells % 0.2
[2018-04-06] MEDS: ALPRAZolam TAB* 0.25 MG PO SCH (20:56)
[2018-04-06] MEDS: Docusate CAP* 100 MG PO PRN (20:56)
[2018-04-06] MEDS: Senna TAB PO PRN (20:57)
[2018-04-07 07:28] LABS: Hematocrit 35 % (35-47); Hemoglobin 11.2 g/dl (12.0-16.0); Mean Corpuscular HGB Conc 33 g/dl (31-36); Mean Corpuscular Hemoglobin 28 pg (27-31); Mean Corpuscular Volume 87 fL (80-97); Mean Platelet Volume 7.5 fL (7.4-10.4); Platelet Count 335 10^3/ul (150-450); Red Blood Count 3.98 10^6/ul (4.00-5.40); Red Cell Distribution Width 18 % (10.5-15); White Blood Count 4.7 10^3/ul (3.5-10.8)
[2018-04-07 07:45] LABS: BUN/Creatinine Ratio 10.1 (8-20); Calcium 11.1 mg/dL (8.6-10.3); EGFR African American 66.9 (>60); EGFR Non-African American 55.3 (>60); Potassium 3.4 mmol/L (3.5-5.0)
[2018-04-07] MEDS: Potassium Chlor TAB* 20 MEQ TAB.ER PO SCH (08:00)
[2018-04-07] MEDS: Enoxaparin(*) 40 MG/0.4 ML SYR SUBCUT SCH (08:00)
[2018-04-07] MEDS: Metoprolol Succinate XL TAB* 25 MG PO SCH (08:00)
[2018-04-07] MEDS ORDERED: Potassium Chlor TAB* 20 MEQ TAB.ER PO ONE (09:27)
--- NOTE | 2018-04-07 09:32 | PN ---
Progress Note - Progress Note Date of Service: 04/07/18 SOAP: Subjective: []Notes that within 2 days of start BRAF/MEK HTN overnight and fluids stopped. Wants to go home. Feels much better then on admission. Knows that she has been a little confused. [id number] Medications: Acetaminophen (Tylenol Tab*) 650 mg PO Q4H PRN PRN Reason: FEVER/PAIN Last Admin: 04/06/18 01:56 Dose: 650 mg Alprazolam (Xanax Tab*) 0.25 mg PO BEDTIME [facility] Last Admin: 04/06/18 20:56 Dose: 0.25 mg Docusate Sodium (Colace Cap*) 200 mg PO BEDTIME PRN PRN Reason: CONSTIPATION Last Admin: 04/06/18 20:56 Dose: 200 mg Enoxaparin Sodium (Lovenox(*)) 40 mg SUBCUT Q24H [facility] Last Admin: 04/07/18 08:00 Dose: 40 mg Haloperidol (Haldol Liq*) 1 mg PO Q6H PRN PRN Reason: AGITATION Last Admin: 04/06/18 08:18 Dose: 1 mg Metoprolol Succinate (Toprol Xl Tab*) 25 mg PO DAILY [facility] Last Admin: 04/07/18 08:00 Dose: 25 mg Potassium Chloride (Klor Con Er Tab*) 20 meq PO ONCE ONE Stop: 04/07/18 09:28 Potassium Chloride (Klor Con Er Tab*) 40 meq PO DAILY [facility] Senna (Senokot Tab*) 2 tab PO BEDTIME PRN PRN Reason: CONSTIPATION Last Admin: 04/06/18 20:57 Dose: 2 tab Objective: [] Vital Signs Temp Pulse Resp BP Pulse Ox 97.3 F 96 18 152/104 97 04/07/18 07:24 04/07/18 07:24 04/07/18 08:00 04/07/18 07:24 04/07/18 07:24 A&OPx3, involved in conversation, but will get easily confused HRR, S1S2 LS clear +BS, abd. soft Trace ankle edema Intake and Output Last 24 Hours 04/05/18 04/06/18 04/07/18 04/08/18 06:59 06:59 06:59 06:59 Intake Total 1517 2620 2388 Output Total 7495 133 5051 Balance -83 2020 -1407 Weight 162 lb 3.2 oz Intake: IV Fluids 927 1620 788 NS (0.9%) 40 meq KCL 1620 788 all fluids 927 Oral 590 1000 1600 Output: Urine 9781 406 5813 Other: Estimated Void Medium # Bowel Movements 0 1 0 Estimated Stool Amount Medium # Voids 2 Laboratory Results - last 24 hr 04/06/18 04/06/18 04/07/18 08:30 10:14 07:07 WBC 4.4 4.7 RBC 3.87 L 3.98 L Hgb 11.0 L 11.2 L Hct 33 L 35 MCV 86 87 MCH 28 28 MCHC 33 33 RDW 18 H 18 H Plt Count 277 335 MPV 8.6 7.5 Neut % (Auto) 43.8 Lymph % (Auto) 33.1 [place] % (Auto) 17.1 Eos % (Auto) 4.6 Baso % (Auto) 1.4 Absolute Neuts (auto) 1.9 Absolute Lymphs (auto) 1.5 Absolute Monos (auto) 0.8 Absolute Eos (auto) 0.2 Absolute Basos (auto) 0.1 Absolute Nucleated RBC 0 Neutrophils % 41 Lymphocytes % 35 Reactive Lymphs % 3 Monocytes % 18 Eosinophils % 3 Basophils % 0 Nucleated RBC % 0.2 Abs Neuts (Manual) 1.8 Abs Lymphs (Manual) 1.7 Abs Monocytes (Manual) 0.8 Absolute Eos (Manual) 0.1 Abs Basophils (Manual) 0 Normal RBC Morphology Not Reportable Anisocytosis 1+ Sodium 138 Potassium 4.4 Chloride 108 Carbon Dioxide 22 Anion Gap 8 BUN 11 Creatinine 0.98 H Est GFR ( Amer) 67.7 Est GFR (Non-Af Amer) 55.9 BUN/Creatinine Ratio 11.2 Glucose 105 H Calcium 10.3 Magnesium 1.6 L Total Bilirubin 0.60 AST 17 ALT 14 Alkaline Phosphatase 276 H Total Protein 6.5 Albumin 3.1 L Globulin 3.4 Albumin/Globulin Ratio 0.9 L 04/07/18 07:07 WBC RBC Hgb Hct MCV MCH MCHC RDW Plt Count MPV Neut % (Auto) Lymph % (Auto) [place] % (Auto) Eos % (Auto) Baso % (Auto) Absolute Neuts (auto) Absolute Lymphs (auto) Absolute Monos (auto) Absolute Eos (auto) Absolute Basos (auto) Absolute Nucleated RBC Neutrophils % Lymphocytes % Reactive Lymphs % Monocytes % Eosinophils % Basophils % Nucleated RBC % Abs Neuts (Manual) Abs Lymphs (Manual) Abs Monocytes (Manual) Absolute Eos (Manual) Abs Basophils (Manual) Normal RBC Morphology Anisocytosis Sodium 138 Potassium 3.4 L Chloride 106 Carbon Dioxide 24 Anion Gap 8 BUN 10 Creatinine 0.99 H Est GFR ( Amer) 66.9 Est GFR (Non-Af Amer) 55.3 BUN/Creatinine Ratio 10.1 Glucose 134 H Calcium 11.1 H Magnesium Total Bilirubin AST ALT Alkaline Phosphatase Total Protein Albumin Globulin Albumin/Globulin Ratio Assessment: []72yo female with metastatic melanoma who was recently started on encorafenib/ binimetinib who was admitted with GILSON felt secondary to ATN from BRAF/MEK inhibitor. She has improved dramatically with hydration and now appears to have a post acute tubular necrosis diuresis (appropriately), we will need to monitor for dehydration. Confusion improved today and I suspect she had toxic metabolic encephalopathy with subsequent hospital induced delirium. Family notes at home she has had some mild "sun downers" and known [employer] mets stable. Plan: []1. ATN: Cr improved though note quite at baseline - HTN overnight and fluids held, will monitor for 24 hours on PO fluids only 2. Delirium: has not needed haldol in 24 hours, suspect she will show significant improvement once home - family questions need for more help at home and case management will follow- up with them 3. Hypercalcemia: associated with elevated AlkPhos and normal PTH - check bone scan - correct calcium 11.2, therefore can hold off on biphosphonate for now, may consider in AM - encourage PO fluids 4. Melanoma - hold therapy at this time Dispo: hopeful for d/c tomorrow AM as long as stable on PO fluids lovenox dvt prophylaxis
[2018-04-07 09:48] LABS: Magnesium 1.6 mg/dL (1.9-2.7)
[2018-04-07] MEDS: Haloperidol LIQ* 10 MG/5 ML UDC PO PRN (15:58)
[2018-04-07 16:07] LABS: Albumin 3.5 g/dL (3.2-5.2); BUN/Creatinine Ratio 9.8 (8-20); Calcium 10.8 mg/dL (8.6-10.3); Globulin 3.5 g/dL (2-4); Magnesium 1.7 mg/dL (1.9-2.7); Potassium 3.8 mmol/L (3.5-5.0); Total Bilirubin 0.5 mg/dL (0.2-1.0)
[2018-04-07] MEDS: ALPRAZolam TAB* 0.25 MG PO SCH (21:40)
[2018-04-08 06:15] LABS: ABS Basophils 0.1 10^3/ul (0-0.2); ABS Eosinophils 0.3 10^3/ul (0-0.6); ABS Lymphocytes 1.7 10^3/ul (1.0-4.8); ABS Monocytes 0.9 10^3/ul (0-0.8); ABS Neutrophils 2.7 10^3/ul (1.5-7.7); ABS Nucleated RBC 0 10^3/ul; Eosinophil % 5.1 %; Hematocrit 35 % (35-47); Hemoglobin 11.2 g/dl (12.0-16.0); Lymphocyte % 29.5 %; Mean Corpuscular HGB Conc 33 g/dl (31-36); Mean Corpuscular Hemoglobin 28 pg (27-31); Mean Corpuscular Volume 87 fL (80-97); Mean Platelet Volume 7.9 fL (7.4-10.4); Nucleated Red Blood Cells % 0.1; Platelet Count 366 10^3/ul (150-450); Red Cell Distribution Width 18 % (10.5-15); White Blood Count 5.7 10^3/ul (3.5-10.8)
[2018-04-08 06:31] LABS: Albumin 3.3 g/dL (3.2-5.2); Albumin/Globulin Ratio 0.9 (1-3); BUN/Creatinine Ratio 13.8 (8-20); Calcium 11.5 mg/dL (8.6-10.3); EGFR Non-African American 58.7 (>60); Globulin 3.6 g/dL (2-4); Magnesium 1.8 mg/dL (1.9-2.7); Potassium 3.7 mmol/L (3.5-5.0); Total Bilirubin 0.4 mg/dL (0.2-1.0); Total Protein 6.9 g/dL (6.4-8.9)
[2018-04-08] MEDS ORDERED: Zoledronic Acid* 4 MG in NS 0.9% 100 ML* 95 ML IVPB ONE (08:58)
[2018-04-08] MEDS ORDERED: Magnesium Oxide TAB* 400 MG PO SCH (09:00)
[2018-04-08] MEDS ORDERED: Potassium Chlor TAB* 20 MEQ TAB.ER PO SCH (09:00)
[2018-04-08] MEDS: Metoprolol Succinate XL TAB* 25 MG PO SCH (10:33)
[2018-04-08] MEDS: Enoxaparin(*) 40 MG/0.4 ML SYR SUBCUT SCH (10:33)
[2018-04-08 12:08] VITALS: BP 148/89
--- NOTE | 2018-04-08 20:23 | DS ---
CC: Dr. Saleem Goodson * DISCHARGE SUMMARY: DATE OF ADMISSION: 04/02/18 DATE OF DISCHARGE: 04/08/18 PRIMARY ONCOLOGIST: Dr. Saleem Goodson. ATTENDING PHYSICIAN: Dr. Adalid Fitch.* (DICTATED BY SUZIE COLINDRES) DISCHARGING PROVIDER: SUZIE Colindres. PRIMARY DISCHARGE DIAGNOSES: 1. Acute kidney injury likely secondary to acute tubular necrosis, most likely as a result of her BRAF inhibitor. 2. Delirium - secondary to acute illness and hospitalization, no organic source identified. 3. 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 4. Metastatic melanoma. DISCHARGE MEDICATIONS: 1. Acetaminophen 650 mg p.o. q.4 hours as needed for fever or pain. 2. Alprazolam 0.25 mg p.o. at bedtime as needed for insomnia. 3. Docusate 200 mg p.o. at bedtime. 4. Magnesium oxide 400 mg p.o. twice daily. 5. Metoprolol succinate 25 mg p.o. daily. 6. Potassium chloride 20 mEq p.o. daily. 7. Senna 2 tablets p.o. at bedtime. 8. Multivitamin. HOSPITAL IMAGIN. Chest x-ray, 04/02/18 demonstrates no acute disease. 2. Renal ultrasound, 04/02/18 demonstrates no hydronephrosis. 3. MRI brain demonstrates multiple brain lesions, which are unchanged from prior. 4. Bone scan, 04/07/18 shows no evidence of metastatic bony disease. HOSPITAL COURSE: This is a 72-year-old female with metastatic melanoma, who has been treated with oral chemotherapy agents, recently switched from one BRAF inhibitor to the next. The patient reports that she began feeling quite weak and developed a tremor the evening after she had started the new medication which was encorafenib and binimetinib. Her symptoms became progressive over 3 days and was eventually seen in the clinic. At the time of evaluation, she had significant kidney failure with normal creatinine 2 weeks prior at 0.94, rising to 3.62. She was extremely lethargic and her vital signs were otherwise within normal limits. She had associated hypokalemia and hypomagnesemia. She had one fever measured in the oncology clinic at 100.8 degrees Fahrenheit. Cultures were collected and chest x-ray completed, which showed no evidence of infection , cultures eventually showed no growth. Renal ultrasound was done to evaluate for obstruction, which was negative and urine analysis demonstrated 1+ protein and high urinary sodium and associated high FENa indicating that her kidney failure was most likely secondary to ATN. Her oral chemotherapy agents were held and she was hydrated with her creatinine eventually returning to baseline at the time of discharge. Electrolytes were repleted as necessary. During the patient's hospitalization, she developed visual hallucinations and some confusion. An MRI of the brain was completed as she does have a known history of [employer]GER met, status post gamma knife, but her MRI appeared stable when compared to prior imaging. The timing of her confusion seemed most consistent with sundowning and most likely due to acute delirium secondary to her acute illness and associated hospitalization. Her degree of confusion seemed to improve closer to discharge. Also of note, the patient developed hypercalcemia during this hospitalization. She has no history of even mild hypercalcemia, but was noted to be 11.1 on 04/07, which corrected closer to 11.5 and 11.5 on the day of discharge correcting closer to 11.7. PTH was checked which was within normal limits and a bone scan was done to evaluate for significant bony disease, which was also negative. Her hypercalcemia was thought to most likely represent paraneoplastic process. She received Zometa infusion prior to discharge. DISPOSITION AND FOLLOWUP PLAN: The patient is being discharged to home where she lives with her son. Plan to discontinue her encorafenib and binimetinib and will be seen in clinic later this week for repeat labs and discuss further treatment planning, which will likely involve pursuing immunotherapy for her. SUZIE COLINDRES [id number]/[facility] #: [id number] [facility]
== END 2018-04-08 11:55 | disposition home or self-care (01) | DRG 682 ==
LOC: MED 17:35
PROVIDERS: ADMIT Internal Medicine Hematology & Oncology; ATTEND Internal Medicine Hematology & Oncology
DX: N17.0 Acute kidney failure with tubular necrosis (principal); G93.41 Metabolic encephalopathy; C79.31 Secondary malignant neoplasm of brain; E87.1 Hypo-osmolality and hyponatremia; I50.9 Heart failure, unspecified; I11.0 Hypertensive heart disease with heart failure; E83.42 Hypomagnesemia; E83.52 Hypercalcemia; N14.1 Nephropathy induced by other drugs, medicaments and biological substances; C50.912 Malignant neoplasm of unspecified site of left female breast; T45.1X5A Adverse effect of antineoplastic and immunosuppressive drugs, initial encounter; Y92.009 Unspecified place in unspecified non-institutional (private) residence as the place of occurrence of the external cause; E87.6 Hypokalemia; R41.0 Disorientation, unspecified; R25.1 Tremor, unspecified; Z91.012 Allergy to eggs; F41.9 Anxiety disorder, unspecified; E78.5 Hyperlipidemia, unspecified; Z87.891 Personal history of nicotine dependence; Z82.49 Family history of ischemic heart disease and other diseases of the circulatory system; Z83.3 Family history of diabetes mellitus; Z79.899 Other long term (current) drug therapy
CPT/HCPCS: 36415; 70551; 71046; 76775; 78306; 80048; 80053; 82140; 82570; 83735; 83970; 84100; 84133; 84550; 85025; 85027; 85060; 99223; 99232; 99233; 99239; A9270-GY; A9503; G8978-GP-CH; G8979-GP-CH; G8980-GP-CH; J0692; J1644; J1650; J3475; J3480; J3489

== ENCOUNTER 2018-05-02 18:31 | Inpatient (IN) | payer MEDICARE, BC ==
--- NOTE | 2018-05-02 19:03 | ED ---
Neurological HPI - HPI Summary HPI Summary: A 73 y/o female brought in by [facility] ambulance presents to [facility] with a chief complaint of 30 minutes of convulsions. The patient is in treatment for brain cancer and sees Dr. Goodson. She denies any LOC, headaches, fever, chills, erythema (eyes), sore throat, chest pain, shortness of breath, cough, abdominal pain, vomiting, nausea, dysuria, hematuria, myalgia, edema, rash and dizziness, but she reports right sided weakness. Per family, the patient started having tremors in her right hand, then her right leg and then her face. Per EMS, she was given Versed en route. Upon arrival her right arm is twitching and she is unable to lift her right arm and leg. Vital signs while in room HR: 85 bpm, O2 Sat: 95 - History of Current Complaint Chief Complaint: EDNeurologicalDeficit Stated Complaint: CONVULSIONS PER EMS Time Seen by Provider: 05/02/18 18:45 Hx Obtained From: Patient, Family/Manager, EMS Onset/Duration: Sudden Onset, Started minutes ago, Still Present Timing: Intermittent Episodes Lasting: - 1 episode lasting 30 minutes, right hand twitching is still present Current Severity: Mild Seizure Severity: Moderate Pain Intensity: 0 Pain Scale Used: 0-10 Numeric Character: Weak Syncope Timing: none Syncope Context: Witnessed, Loss of Consciousness: No Aggravating: Nothing Alleviating: Nothing Associated Signs and Symptoms: Positive: Weakness. Negative: Headache, Loss of Consciousness, Nausea/Vomiting, Fever, Chest Pain - Additional Pertinent History Primary Care Physician: [id number] - Allergy/Home Medications Allergies/Adverse Reactions: Allergies Allergy/AdvReac Type Severity Reaction Status Date / Time Adhesive Tape Allergy Severe Itching Verified 04/21/18 13:31 egg Allergy Severe See Comment Verified 04/21/18 13:31 Egg Derived Allergy Severe See Comment Verified 04/21/18 13:31 egg yolk Allergy Severe See Comment Verified 04/21/18 13:31 BANDAIDS Allergy Intermediate Rash Uncoded 04/21/18 13:31 Home Medications: Home Medications Clotrimazole ALIRIO* [Mycelex Alirio*] 10 mg TOPICAL QID 05/02/18 [History Confirmed 05/02/18] Dexamethasone 2 mg PO DAILY WITH MEAL 05/02/18 [History Confirmed 05/02/18] Dronabinol [Marinol] 2.5 mg PO BID 05/02/18 [History Confirmed 05/02/18] Escitalopram * [Lexapro 5 mg (NF)] 5 mg PO DAILY 05/02/18 [History Confirmed 10/13] Prochlorperazine Maleate [Compazine] 10 mg PO Q6HR PRN 05/02/18 [History Confirmed 05/02/18] PMH/Surg Hx/FS Hx/Imm Hx Endocrine/Hematology History: Denies: Hx Diabetes Cardiovascular History: Reports: Hx Congestive Heart Failure, Hx Hypercholesterolemia, Hx Hypertension - on meds Denies: Hx Pacemaker/ICD History: Denies: Hx Renal Disease Musculoskeletal History: Reports: Hx Arthritis Sensory History: Reports: Hx Contacts or Glasses Denies: Hx Hearing Aid Opthamlomology History: Reports: Hx Contacts or Glasses Psychiatric History: Reports: Hx Anxiety Denies: Hx Panic Disorder - Cancer History Cancer Type, Location and Year: MELANOMA LEFT BREAST, BRAIN METS Hx Chemotherapy: Yes - Surgical History Surgery Procedure, Year, and Place: gamma knife surgery- october 2017. c- sections Hx Anesthesia Reactions: Yes - after first , was an emergency-body "blew up, asleep for 2 days Infectious Disease History: No Infectious Disease History: Denies: Traveled Outside the [place] in Last 30 Days - Family History Known Family History: Positive: Hypertension - mother , Diabetes - mother - Social History Alcohol Use: None Substance Use Type: Reports: None Smoking Status (MU): Former Smoker Amount Used/How Often: smoked off and on 25 years approx 1/2ppd Review of Systems Negative: Fever, Chills Negative: Erythema Negative: Sore Throat Negative: Chest Pain Negative: Shortness Of Breath, Cough Negative: dysuria, hematuria Negative: Myalgia, Edema Negative: Rash Neurological: Negative - LOC, Other - Positive: convulsions for 30 minutes Positive: Weakness - right sided. Negative: Headache All Other Systems Reviewed And Are Negative: Yes Physical Exam - Summary Physical Exam Summary: Constitutional: Well-developed, Well-nourished, Alert. (-) Distressed Skin: Warm, Dry HENT: Normocephalic; Atraumatic Eyes: Conjunctiva normal Neck: Musculoskeletal ROM normal neck. (-) JVD, (-) Stridor, (-) Tracheal deviation Cardio: Rhythm regular, rate normal, Heart sounds normal; Intact distal pulses; The pedal pulses are 2+ and symmetric. Radial pulses are 2+ and symmetric. (-) Murmur Pulmonary/Chest wall: Effort normal. (-) Respiratory distress, (-) Wheezes, (-) Rales Abd: Soft, (-) tenderness, (-) Distension, (-) Guarding, (-) Rebound Musculoskeletal: (-) Edema Lymph: (-) Cervical adenopathy Neuro: Alert, Oriented x3, focal tonic-clonic activity of RUE with no involvement of face, right leg is paretic Psych: Mood and affect Normal Triage Information Reviewed: Yes Vital Signs On Initial Exam: Initial Vitals Temp Pulse Resp BP Pulse Ox 97.9 F 81 18 114/69 95 05/02/18 18:51 05/02/18 18:51 05/02/18 18:51 05/02/18 18:51 05/02/18 18:51 Vital Signs Reviewed: Yes - Nico Coma Scale Best Eye Response: 4 - Spontaneous Best Motor Response: 6 - Obeys Commands Best Verbal Response: 5 - Oriented Coma Scale Total: 15 Diagnostics - Vital Signs Vital Signs Temp Pulse Resp BP Pulse Ox 05/02/18 18:51 97.9 F 81 18 114/69 95 - Laboratory Result Diagrams: 05/02/18 19:28 05/02/18 19:28 Lab Statement: Any lab studies that have been ordered have been reviewed, and results considered in the medical decision making process. - CT Brain CT Interpretation Completed By: Radiologist Summary of CT Findings: 1. New and enlarging brain lesions bilaterally, most pronounced on the left,. with significant vasogenic edema. All lesions contain areas of high density,. which may represent melanin, but a component of acute hemorrhage is not. excluded. 2. Effacement of cortical sulci, most pronounced along the left convexity. No. midline shift or impending herniation. 3. Lucent foci noted in the posterior calvarium which were seen on prior MRIs. but direct comparison is difficult due to differences in patient positioning. ED physician has reviewed this imaging report. - EKG 18:58 Cardiac Rate: NL - 77 bpm EKG Rhythm: Sinus Rhythm Summary of EKG Findings: EKG at 18:58 showed normal sinus rhythm at 77 bpm, no STEMI. Re-Evaluation - Re-Evaluation First Eval Re-Evaluation Time: 20:02 Change: Unchanged Comment: paretic right arm and leg motor activity Second Eval Re-Evaluation Time: 21:32 Change: Unchanged Comment: Informed patient and family about results Course/Dx - Course Course Of Treatment: A 73 y/o female brought in by [facility] ambulance presents to [facility] with a chief complaint of 30 minutes of convulsions. The patient is in treatment for brain cancer and sees Dr. Goodson. She denies any LOC, headaches, fever, chills, erythema (eyes), sore throat, chest pain, shortness of breath, cough, abdominal pain, vomiting, nausea, dysuria, hematuria, myalgia , edema, rash and dizziness, but she reports right sided weakness. Per family, the patient started having tremors in her right hand, then her right leg and then her face. Per EMS, she was given Versed en route. Upon arrival her right arm is twitching and she is unable to lift her right arm and leg. The physical exam revealed focal tonic-clonic activity of RUE with no involvement of face, right leg is paretic. In the ED course the patient was given 1 mg Lorazepam IV. EKG at 18:58 showed normal sinus rhythm at 77 bpm, no STEMI. Bloodwork and chemistries obtained. Lactic acid of 3.0 at 19:27. Case discussed with Dr. Rivera, neuro, who recommended admission and 1 gram of Keppra. Discussed case with Dr. Fitch, oncologist, who recommended a modest increase of Decadron. Brain CT impression: 1. New and enlarging brain lesions bilaterally, most pronounced on the left,. with significant vasogenic edema. All lesions contain areas of high density,. which may represent melanin, but a component of acute hemorrhage is not. excluded. 2. Effacement of cortical sulci, most pronounced along the left convexity. No. midline shift or impending herniation. 3. Lucent foci noted in the posterior calvarium which were seen on prior MRIs. but direct comparison is difficult due to differences in patient positioning. Discussed case with Dr. Bnaks, hospitalist, who accepted the patient for admission. The patient is agreeable with this plan. - Diagnoses Provider Diagnoses: Brain tumor, Seizure - Physician Notifications Discussed Care Of Patient With: Eagle Rivera Time Discussed With Above Provider: 20:02 Instructed by Provider To: Other - Recommended admission and 1 gram of Keppra Discharge - Sign-Out/Discharge Documenting (check all that apply): Patient Departure - admit Patient Received Moderate/Deep Sedation with Procedure: No - Discharge Plan Condition: Fair Disposition: ADMITTED TO [facility] Referrals: Saleem Goodson MD [Primary Care Provider] - - Attestation Statements Document Initiated by Scribe: Yes Documenting Scribe: Arnold Beck Provider For Whom Scribe is Documenting (Include Credential): Aristides Sauceda MD Scribe Attestation: IArnold, scribed for Aristides Sauceda MD on 05/02/18 at 0785. Status of Scribe Document: Ready Consult Consult: At 20:20 - Discussed case with Dr. Fitch, oncologist, who recommended a modest increase of Decadron. At 21:00 - Discussed case with Dr. Banks, hospitalist, who accepted the patient for admission.
[2018-05-02] MEDS ORDERED: LORazepam INJ* 2 MG/ML 1 ML VIAL IV PUSH ONE (19:09)
[2018-05-02 19:35] LABS: ABS Basophils 0.2 10^3/ul (0-0.2); ABS Eosinophils 0.1 10^3/ul (0-0.6); ABS Lymphocytes 1.1 10^3/ul (1.0-4.8); ABS Monocytes 0.8 10^3/ul (0-0.8); ABS Neutrophils 8.8 10^3/ul (1.5-7.7); ABS Nucleated RBC 0 10^3/ul; Eosinophil % 0.5 %; Hematocrit 34 % (35-47); Hemoglobin 11.2 g/dl (12.0-16.0); Lymphocyte % 10.6 %; Mean Corpuscular HGB Conc 33 g/dl (31-36); Mean Corpuscular Hemoglobin 29 pg (27-31); Mean Corpuscular Volume 88 fL (80-97); Mean Platelet Volume 7.3 fL (7.4-10.4); Nucleated Red Blood Cells % 0; Platelet Count 344 10^3/ul (150-450); Red Blood Count 3.83 10^6/ul (4.00-5.40); Red Cell Distribution Width 17 % (10.5-15); White Blood Count 10.9 10^3/ul (3.5-10.8)
[2018-05-02 19:41] LABS: INR 0.94 (0.77-1.02)
[2018-05-02 19:56] LABS: Albumin 3.6 g/dL (3.2-5.2); Albumin/Globulin Ratio 1.1 (1-3); BUN/Creatinine Ratio 22.5 (8-20); Calcium 9.4 mg/dL (8.6-10.3); EGFR African American 85.3 (>60); EGFR Non-African American 70.5 (>60); Globulin 3.3 g/dL (2-4); Potassium 3.6 mmol/L (3.5-5.0); Total Bilirubin 0.4 mg/dL (0.2-1.0); Total Protein 6.9 g/dL (6.4-8.9)
[2018-05-02] MEDS ORDERED: levETIRAcetam IV* 1,000 MG in NS 0.9% 100 ML* 100 ML IVPB ONE (20:03)
[2018-05-02] MEDS ORDERED: Dexamethasone IV* 4 MG/ML 1 ML (4 MG) IV SLOW PU ONE (20:40)
[2018-05-02] MEDS ORDERED: LORazepam INJ* 2 MG/ML 1 ML VIAL IV PUSH PRN (21:43)
[2018-05-02] MEDS ORDERED: NS 0.9% 1000 ML** 1,000 ML IV SCH (21:45)
[2018-05-02] MEDS ORDERED: Acetaminophen TAB* 325 MG PO PRN (21:46)
[2018-05-02] MEDS ORDERED: Senna TAB PO PRN (21:46)
[2018-05-02] MEDS ORDERED: Docusate CAP* 100 MG PO PRN (21:46)
--- NOTE | 2018-05-02 23:09 | HP ---
CC: Dr. Goodson * HISTORY AND PHYSICAL: DATE OF ADMISSION: 05/02/18 PRIMARY CARE PROVIDER: Dr. Goodson. CHIEF COMPLAINT: Seizure. HISTORY OF PRESENT ILLNESS: Ms. 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 The patient reportedly fell this past Saturday. Since then , she has been somewhat unstable on her feet. She started a new immunotherapy on last week. Outside of these issues, the patient stated that she had been feeling pretty much in her usual state. Her son was with her at the time of the seizure. He states that she was complaining that her right leg felt lazy and tingly. He then started doing physical therapy with her and noted that the right arm started jerking. He thought initially that it was an odd presentation of her muscle strength returning. The jerking of the right arm became more rapid and much more aggressive. It then began to involve her right leg, then her right face, and then she had jerking of all limbs. Her son states that she was alert during the entire seizure episode. She was able to answer questions and communicate with him during the entire episode. He estimates the seizure lasting approximately 25 to 30 minutes. She reportedly was still having seizure activity involving the right arm when she arrived to the emergency room, for which she received Ativan 1 mg IV. The patient now has paralysis of the right arm and leg. At times, she described the limbs as feeling heavy. Her family and the patient have noted that there has been slight improvement in the weakness of the right lower extremity where she is now able to wiggle her toes some and start dragging the heel along the bed, but it is nowhere where it used to be. The patient had no incontinence during the episode earlier today. PAST MEDICAL HISTORY: 1. Metastatic melanoma with brain metastasis. 2. History of congestive heart failure. 3. Hyperlipidemia. 4. Hypertension. PAST SURGICAL HISTORY: 1. . 2. Spinal surgery at 18 years old. 3. Melanoma excision. MEDICATIONS: 1. Clotrimazole connie 10 mg p.o. 4 times daily. 2. Compazine 10 mg p.o. q.6 hours p.r.n. nausea. 3. Dronabinol 2.5 mg p.o. b.i.d. 4. Dexamethasone 2 mg p.o. daily with breakfast. 5. Lexapro 5 mg p.o. daily. 6. Tylenol 650 mg p.o. q.4 hours p.r.n. pain. 7. Women's One-A-Day multivitamin 1 tab p.o. daily. 8. Senna 2 tabs p.o. q.h.s. p.r.n. constipation. 9. Potassium chloride 40 mEq p.o. daily. 10. Metoprolol XL 25 mg p.o. daily. 11. Colace 200 mg p.o. q.h.s. p.r.n. constipation. 12. Xanax 0.5 mg p.o. q.h.s. ALLERGIES: ADHESIVE TAPE, EGGS, and BAND-AIDS. FAMILY HISTORY: Positive for diabetes and hypertension. SOCIAL HISTORY: The patient is . She does not drink alcohol. She does not smoke currently, but smoked for 35 years on and off with an average of approximately half a pack per day. She quit smoking in 2006. She indicates that her son, Petr, would be her healthcare proxy. REVIEW OF SYSTEMS: A complete 11-system review of systems was obtained. Pertinent positives and negatives are as per HPI and otherwise negative. PHYSICAL EXAMINATION GENERAL: The patient is a well-developed elderly female, seen sitting up in the stretcher, in no acute distress. VITAL SIGNS: Blood pressure 121/74, pulse 75, respirations 24, temp 97.9, O2 sat 97% on room air. HEENT: Pupils are equally round. Extraocular muscles are intact. Oropharynx is clear. Oral mucosa is moist. There is no submandibular, cervical, or supraclavicular adenopathy. Thyroid is not enlarged. No thyroid nodules noted. PULMONARY: Lungs are clear to auscultation bilaterally. CARDIAC: Normal S1, S2. Regular rate and rhythm. I do not appreciate any murmurs. There is no lower extremity edema. ABDOMEN: Bowel sounds are present. Abdomen is soft, nontender, nondistended. MUSCULOSKELETAL: There is no cyanosis or clubbing of the digits. There is full active range of motion of the left upper and lower extremity. Right upper extremity has flaccid paralysis. Right lower extremity, there is decreased range of motion, though with stimulation at the bottom of the foot. The patient is able to withdraw the leg from the stimulation. She is able to wiggle her toes. She is unable to lift the leg off the bed. SKIN: Warm and dry. There are no rashes. NEUROLOGIC: Cranial nerves II through XII appear to be grossly intact, though there is a slight droop in the right corner of the mouth that the patient's son states that it is baseline. Strength of the right upper extremity is 0/5. Strength of the right lower extremity is 3-/5. Left upper and lower extremity strength is 5/5. PSYCHIATRIC: The patient is alert. Her affect is flat. She seems almost withdrawn and depressed. LABORATORY DATA/DIAGNOSTIC STUDIES: WBC 10.9, hemoglobin 11.2, hematocrit 34, platelets 344. INR 0.94. Sodium 136, potassium 3.6, chloride 103, CO2 23, BUN 18, creatinine 0.8, glucose 121, lactic acid 3.0, calcium is 9.4, magnesium is 2.0, bilirubin 0.4, AST 14, ALT 12, alk phos 82, albumin 3.6. EKG reveals normal sinus rhythm without any acute ST-T wave abnormalities. EKG looks relatively unchanged from prior in March 2018. CT brain reveals new and enlarging brain lesions bilaterally, most pronounced on the left with significant vasogenic edema. All lesions contain areas of high density which may represent melanin, but a component of acute hemorrhage is not excluded. Effacement of cortical sulci most pronounced along the left convexity is noted. No midline shift or impending herniation is noted. Lucent foci noted in the posterior calvarium, which were seen on prior MRIs, but direct comparison is difficult due to differences in patient positioning. ASSESSMENT AND PLAN: Ms. Ellis is a 73-year-old female with a known history of metastatic melanoma, who presents to the emergency room with complaints of seizure. 1. Seizure. This is most definitely related to the metastatic brain lesions. The patient will be seen by Neurology tomorrow, though for tonight it has been recommended to initiate Keppra. The patient will receive Keppra 1000 mg IV q.12 hours for now. We will wait any further recommendation from Dr. Rivera. We will continue Decadron 2 mg p.o. daily. She will have Ativan available p.r.n. for seizures lasting greater than 5 minutes. I do believe she has a Jimbo paralysis involving the right upper and lower extremities. There has been reported improvement from the patient and her family with the strength in the right lower extremity. I am hopeful with time she will regain further strength to the extremities. 2. History of heart failure. At this point, the patient is euvolemic. She will continue on her Toprol-XL. She is not on a diuretic. 3. Hypertension. Blood pressure is under good control. We will continue Toprol- XL. 4. DVT prophylaxis. According to the Adult Thrombosis Prophylaxis Risk Factor Assessment Guide, the patient has a total risk factor score of 4, making her high risk. SCDs alone will be utilized as DVT prophylaxis for now given the findings on the CT scan, though I doubt the hyperdensity in the metastatic lesions represents acute bleed. 5. Code status is full. TIME SPENT: Sixty-five minutes were spent admitting this patient. [id number]/CPS #: [id number] GREGORIO
[2018-05-03 06:40] LABS: Urine Appearance Clear; Urine Bilirubin Negative (Negative); Urine Blood Negative (Negative); Urine Color Yellow; Urine Glucose Negative (Negative); Urine Ketones Negative (Negative); Urine Nitrite Negative (Negative); Urine Protein Negative (Negative); Urine Urobilinogen Negative (Negative)
[2018-05-03] MEDS ORDERED: levETIRAcetam IV* 1,000 MG in NS 0.9% 100 ML* 100 ML IVPB SCH (07:00)
[2018-05-03] MEDS: levETIRAcetam IV* 1,000 MG in NS 0.9% 100 ML* 100 ML IVPB SCH ×2 (09:08→21:59)
[2018-05-03] MEDS: Vitamin THERAPEUTIC TAB PO SCH (09:09)
[2018-05-03] MEDS: Potassium Chlor TAB* 20 MEQ TAB.ER PO SCH (09:09)
[2018-05-03] MEDS: Clotrimazole TROCHE* 10 MG TROCHE PO SCH ×4 (09:10→22:10)
[2018-05-03] MEDS: Metoprolol Succinate XL TAB* 25 MG PO SCH (09:10)
[2018-05-03] MEDS: Dexamethasone TAB* 1 MG PO SCH (09:10)
[2018-05-03] MEDS: Dronabinol CAP* 2.5 MG PO SCH ×2 (09:10→22:09)
[2018-05-03] MEDS: ALPRAZolam TAB* 0.5 MG PO SCH (22:09)
--- NOTE | 2018-05-03 22:31 | CONS ---
NEUROLOGY CONSULTATION NOTE: DATE OF CONSULT: 05/03/18 CONSULTING PROVIDER: Dr. Banks. REASON FOR CONSULT: Seizures. CHIEF COMPLAINT: Right-sided weakness with shaking of the extremities. HISTORY OF PRESENT ILLNESS: Ms. Ellis is a 73-year-old female with a history of known metastatic melanoma with mets to the brain, who is status post gamma knife radiation therapy, who presented to [facility] on 05/02/18 for reported focal seizures. The patient stated that she fell last Saturday. Since then her right upper and right lower extremity were not the same. She had some shaking-like spells that she was aware of over the week. Yesterday, however, she was sitting in between her son and her [id number] when suddenly her right arm began shaking. She was breathing and cognizant of the shaking. Prior to the shaking, she felt an abnormal band-like sensation around the right hand that traveled up to the right arm and eventually up the right side of the face. That was followed by seizure- like activity within minutes. The movement lasted approximately 25 minutes. She did not have any generalized convulsions but did feel lethargic following the incident. She had significant postictal Jimbo paralysis of the right upper and lower extremities, but the right lower extremity seems to be slowly improving. She still has weakness in the right arm. She has never had any history of shaking episodes in the past or seizure- like activity. She had a brain CT of the head completed 05/02/18 that showed evidence of multiple new enlarged brain lesions bilaterally, most pronounced on the left frontal and parietal lobes with significant vasogenic edema. There is high density, which represents melanin correlating with her history of malignant metastatic melanoma. The patient was loaded levetiracetam 1000 mg and continued on 1000 mg twice daily. She is tolerating the medication without any reported irritability or agitation. She is unable to standup and ambulate. The patient did receive 1 mg of Ativan in the ED yesterday for these episodes. PAST MEDICAL HISTORY: Metastatic melanoma with brain mets, history of congestive heart failure, hyperlipidemia, hypertension, brain gamma knife radiation therapy, melanoma excision, spinal surgery at 18 years of age. MEDICATIONS: 1. Metoprolol succinate 25 mg p.o. daily. 2. Senna 2 tabs p.o. at bedtime. 3. Alprazolam 0.5 mg p.o. at bedtime. 4. Acetaminophen 650 mg p.o. every 4 hours as needed. 5. Potassium chloride supplement. 6. Docusate sodium. 7. Prochlorperazine. 8. Lexapro 5 mg. 9. Marinol 2.5 mg p.o. b.i.d. 10. Dexamethasone 2 mg daily. 11. Clotrimazole 10 mg topical q.i.d. 12. It is important to add that the patient is also on chemotherapy drug for her melanoma. ALLERGIES: ADHESIVE TAPE, eggs, AND BAND-AIDS. FAMILY HISTORY: No family history of stroke or seizures. Family history is positive for diabetes and hypertension. SOCIAL HISTORY: The patient is a . She denied tobacco or alcohol use. She did, however, smoke for 35 years and quit in 2006. REVIEW OF SYSTEMS: A 14-point review of systems was obtained and otherwise negative except for as mentioned in the HPI. PHYSICAL EXAMINATION: Vital Signs: Temperature of 98, pulse rate of 62, respiratory rate of 18, oxygen saturation of 97, blood pressure is 132/70. General: Well-appearing, well-developed female, in no acute distress. Head: Normocephalic, atraumatic. Eyes: Conjunctivae/corneas are clear. Neck is supple and symmetrical. No carotid bruits. Lungs: Clear to auscultation bilaterally. Cardiovascular: Regular rate and rhythm with normal S1, S2. Extremities: Normal range of motion with no cyanosis. Skin: No skin lesions or laceration. Psych: Affect is broad and normal mood. Easy to establish rapport. Neurological Examination: Mental Status: Awake, alert, oriented to person, place, time, and general circumstances. She has mild psychomotor slowing, but she is able to name, comprehend, and repeat certain words and phrases. Cranial Nerves: Normal confrontation testing bilaterally. Pupils are mid range and reactive to light. Normal consensual response. Sensation is intact on the forehead, cheeks, and jaw region bilaterally. There is no facial droop. Able to hear throughout the history process. Symmetrical palatal elevation. Normal strength against shoulder shrug. Motor Examination: Nearly flaccid in the right upper extremity with strength ranging from 0 to 1. She has increase in tone in the right upper and right lower extremities. She is able to lift the right leg above the bed. She was unable to sustain the elevation of the right leg with resistance. She has normal strength in the left upper and lower extremities. Reflexes: Right/left brachioradialis 3/2, biceps 3/2, triceps 3/2, patella 3/2 , ankle 2/1, plantar extensor/extensor. Sensation is intact to light touch throughout. Coordination: Normal [id number] on the left, unable to perform on the right due to nearly plegic right upper extremity. Gait was attempted, but could not stand her up due to significant weakness. ASSESSMENT AND RECOMMENDATIONS: Ms. Karolina Ellis is a pleasant 73-year-old right- handed female who has a history of metastatic malignant melanoma to the brain with CT head finding of new metastatic lesions, mostly involved in the left frontal and parietal lobes, who presented yesterday with new onset of focal motor seizures. I suspect the patient has had a Jacksonian march initially that progressed to nearly epilepsy partialis continua for approximately 25-30 minutes. Symptoms subsided after Ativan and the levetiracetam dose bolus. She has not had any seizure since yesterday. She has significant deficits on the right upper and lower extremities, for which she thinks that the lower extremity is slowly improving. Her weakness suggests either it is related to the vasogenic edema in the left hemisphere or related to Jimbo paralysis following the seizure. I suspect it is the former since she has also some spasticity in those limbs. I discussed with oncology team. I recommended to continue the patient on levetiracetam 1000 mg twice daily. Please transition her to p.o. if she passes a swallow evaluation. She will require consultation with Radio Oncology. I agree with Decadron therapy. She is currently on chemotherapy and therefore the dose of Decadron is extremely low. She may need a neurosurgical consultation if the intracranial hemorrhages progress. Prognosis is guarded. I do not have any further recommendation from the neurology standpoint unless she continues to have seizures, in which we would increase her levetiracetam and eventually add a second antiepileptic agent. At that time, adding Vimpat would be recommended. No need for an EEG as the patient is not in clinical status epilepticus and is not having any seizures. I agree with obtaining an MRI since her most recent MRI approximately a month ago just showed small areas of hemorrhage in the left frontal and parietal regions, but now it has changed significantly over the last 4-5 weeks. Please contact us for any questions or concerns. We are available at any time. I have discussed my recommendation with Ms. Ellis and the oncology team. I answered all their questions to the best of my abilities. TIME SPENT: 70 minutes. [id number] #: [id number] MTDFrancia
[2018-05-04] MEDS: Dexamethasone TAB* 1 MG PO SCH (08:46)
[2018-05-04] MEDS: Dronabinol CAP* 2.5 MG PO SCH ×2 (08:46→21:02)
[2018-05-04] MEDS: Metoprolol Succinate XL TAB* 25 MG PO SCH (08:46)
[2018-05-04] MEDS: Potassium Chlor TAB* 20 MEQ TAB.ER PO SCH (08:46)
[2018-05-04] MEDS: Vitamin THERAPEUTIC TAB PO SCH (08:46)
[2018-05-04] MEDS: Clotrimazole TROCHE* 10 MG TROCHE PO SCH ×4 (08:46→21:02)
[2018-05-04] MEDS: levETIRAcetam IV* 1,000 MG in NS 0.9% 100 ML* 100 ML IVPB SCH (08:47)
[2018-05-04 11:32] LABS: BUN/Creatinine Ratio 25.7 (8-20); EGFR African American 99.5 (>60); EGFR Non-African American 82.3 (>60); Potassium 3.8 mmol/L (3.5-5.0)
[2018-05-04] MEDS: ALPRAZolam TAB* 0.5 MG PO SCH (21:01)
[2018-05-04] MEDS: levETIRAcetam TAB* 500 MG PO SCH (21:02)
[2018-05-05] MEDS: Potassium Chlor TAB* 20 MEQ TAB.ER PO SCH (08:12)
[2018-05-05] MEDS: Metoprolol Succinate XL TAB* 25 MG PO SCH (08:12)
[2018-05-05] MEDS: Dronabinol CAP* 2.5 MG PO SCH ×2 (08:12→21:10)
[2018-05-05] MEDS: Dexamethasone TAB* 1 MG PO SCH (08:12)
[2018-05-05] MEDS: levETIRAcetam TAB* 500 MG PO SCH ×2 (08:12→21:10)
[2018-05-05] MEDS: Vitamin THERAPEUTIC TAB PO SCH (08:12)
[2018-05-05] MEDS: Clotrimazole TROCHE* 10 MG TROCHE PO SCH ×4 (08:16→21:11)
--- NOTE | 2018-05-05 10:55 | PN ---
Progress Note - Progress Note Date of Service: 05/05/18 SOAP: Subjective: []Seizure at home starting in R arm. Better now but was very scary. Had paralysis on right side after event, now improving with movement arm and leg today. No fever. Acetaminophen (Tylenol Tab*) 650 mg PO Q4HR PRN PRN Reason: PAIN Alprazolam (Xanax Tab*) 0.5 mg PO BEDTIME [facility] Last Admin: 05/04/18 21:01 Dose: 0.5 mg Clotrimazole (Mycelex Alirio*) 10 mg PO QID [facility] Last Admin: 05/05/18 08:16 Dose: 10 mg Dexamethasone (Decadron Tab*) 2 mg PO DAILY WITH MEAL [facility] Last Admin: 05/05/18 08:12 Dose: 2 mg Docusate Sodium (Colace Cap*) 200 mg PO BEDTIME PRN PRN Reason: CONSTIPATION Last Admin: 05/03/18 22:10 Dose: 200 mg Dronabinol (Marinol Cap*) 2.5 mg PO BID [facility] Last Admin: 05/05/18 08:12 Dose: 2.5 mg Levetiracetam (Keppra Tab*) 1,000 mg PO BID [facility] Last Admin: 05/05/18 08:12 Dose: 1,000 mg Lorazepam (Ativan Inj*) 1 mg IV PUSH Q2H PRN PRN Reason: seizure lasting >5min Metoprolol Succinate (Toprol Xl Tab*) 25 mg PO DAILY [facility] Last Admin: 05/05/18 08:12 Dose: 25 mg Multivitamins (Theragran Tab*) 1 tab PO QAM [facility] Last Admin: 05/05/18 08:12 Dose: 1 tab Potassium Chloride (Klor Con Er Tab*) 40 meq PO DAILY [facility] Last Admin: 05/05/18 08:12 Dose: 40 meq Senna (Senokot Tab*) 2 tab PO BEDTIME PRN PRN Reason: CONSTIPATION Last Admin: 05/03/18 22:10 Dose: 2 tab Objective: [] Vital Signs Temp Pulse Resp BP Pulse Ox 98.0 F 61 18 131/70 96 05/05/18 08:08 05/05/18 08:08 05/05/18 08:12 05/05/18 08:08 05/05/18 08:08 HEENT: pale, no thrush Neuro: 4/5 on R side upper and lower, reflexex +2, neg babinski. AAOx3 CTA RRR S1S2 +BS NT ND Juarez Tr edema Assessment: []73 year old metastatic melanoma, off therapy for extended time second to SE. 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 Likely true progression, cannot rule out pseudo-progression on immunotherapy. Seizure controlled with Keppra and function improving. Plan: []1. MRI today 2. Steroids to symptomatic improvement but lowest dose possible. 3. D/w Dr. Renae re-gamma knife 4. D/c Larry 5. Continue Keppra 6. PT daily
[2018-05-05] MEDS ORDERED: Gadoteridol* (CONTRAST) 279.3 MG/ML 10 ML IV ONE (11:16)
[2018-05-05] MEDS: Enoxaparin(*) 30 MG/0.3 ML SYR SUBCUT SCH (13:40)
[2018-05-05] MEDS: ALPRAZolam TAB* 0.5 MG PO SCH (21:10)
[2018-05-06 07:34] LABS: Albumin 3.3 g/dL (3.2-5.2); Albumin/Globulin Ratio 1.1 (1-3); BUN/Creatinine Ratio 28.4 (8-20); Calcium 9.1 mg/dL (8.6-10.3); EGFR African American 104.7 (>60); EGFR Non-African American 86.5 (>60); Globulin 3.1 g/dL (2-4); Potassium 3.6 mmol/L (3.5-5.0); Total Bilirubin 0.4 mg/dL (0.2-1.0); Total Protein 6.4 g/dL (6.4-8.9)
[2018-05-06 07:44] LABS: ABS Basophils 0.1 10^3/ul (0-0.2); ABS Eosinophils 0.3 10^3/ul (0-0.6); ABS Monocytes 0.8 10^3/ul (0-0.8); ABS Neutrophils 6.4 10^3/ul (1.5-7.7); ABS Nucleated RBC 0 10^3/ul; Hematocrit 35 % (35-47); Hemoglobin 11.6 g/dl (12.0-16.0); Mean Corpuscular HGB Conc 33 g/dl (31-36); Mean Corpuscular Hemoglobin 29 pg (27-31); Mean Corpuscular Volume 89 fL (80-97); Mean Platelet Volume 7.7 fL (7.4-10.4); Nucleated Red Blood Cells % 0.1; Platelet Count 317 10^3/ul (150-450); Red Blood Count 3.95 10^6/ul (4.00-5.40); Red Cell Distribution Width 17 % (10.5-15); White Blood Count 9.6 10^3/ul (3.5-10.8)
[2018-05-06] MEDS: Dexamethasone TAB* 1 MG PO SCH (08:57)
[2018-05-06] MEDS: Vitamin THERAPEUTIC TAB PO SCH (08:58)
[2018-05-06] MEDS: Dronabinol CAP* 2.5 MG PO SCH ×2 (08:58→20:22)
[2018-05-06] MEDS: levETIRAcetam TAB* 500 MG PO SCH ×2 (08:58→20:22)
[2018-05-06] MEDS: Metoprolol Succinate XL TAB* 25 MG PO SCH (08:58)
[2018-05-06] MEDS: Potassium Chlor TAB* 20 MEQ TAB.ER PO SCH (08:58)
[2018-05-06] MEDS: Clotrimazole TROCHE* 10 MG TROCHE PO SCH ×4 (09:02→21:02)
--- NOTE | 2018-05-06 10:32 | PN ---
Progress Note - Progress Note Date of Service: 05/06/18 SOAP: Subjective: [Strength improving in R leg and R arm. She is able to walk with assistance. She feels like her weakness increases significantly after she takes her Keppra with associated fatigue. No new weakness, numbness or seizure activity.] Objective: [ Vital Signs: Temp Pulse Resp BP Pulse Ox 96.6 F 55 16 118/66 100 05/06/18 08:15 05/06/18 08:15 05/06/18 09:25 05/06/18 08:15 05/06/18 02:39 Acetaminophen (Tylenol Tab*) 650 mg PO Q4HR PRN PRN Reason: PAIN Alprazolam (Xanax Tab*) 0.5 mg PO BEDTIME [facility] Last Admin: 05/05/18 21:10 Dose: 0.5 mg Clotrimazole (Mycelex Alirio*) 10 mg PO QID [facility] Last Admin: 05/06/18 09:02 Dose: 10 mg Dexamethasone (Decadron Tab*) 2 mg PO DAILY WITH MEAL [facility] Last Admin: 05/06/18 08:57 Dose: 2 mg Docusate Sodium (Colace Cap*) 200 mg PO BEDTIME PRN PRN Reason: CONSTIPATION Last Admin: 05/03/18 22:10 Dose: 200 mg Dronabinol (Marinol Cap*) 2.5 mg PO BID [facility] Last Admin: 05/06/18 08:58 Dose: 2.5 mg Enoxaparin Sodium (Lovenox(*)) 30 mg SUBCUT Q24H [facility] Last Admin: 05/05/18 13:40 Dose: 30 mg Levetiracetam (Keppra Tab*) 1,000 mg PO BID [facility] Last Admin: 05/06/18 08:58 Dose: 1,000 mg Lorazepam (Ativan Inj*) 1 mg IV PUSH Q2H PRN PRN Reason: seizure lasting >5min Metoprolol Succinate (Toprol Xl Tab*) 25 mg PO DAILY [facility] Last Admin: 05/06/18 08:58 Dose: 25 mg Multivitamins (Theragran Tab*) 1 tab PO QAM [facility] Last Admin: 05/06/18 08:58 Dose: 1 tab Potassium Chloride (Klor Con Er Tab*) 40 meq PO DAILY [facility] Last Admin: 05/06/18 08:58 Dose: 40 meq Senna (Senokot Tab*) 2 tab PO BEDTIME PRN PRN Reason: CONSTIPATION Last Admin: 05/03/18 22:10 Dose: 2 tab Laboratory Results - last 24 hr 05/06/18 05/06/18 07:06 07:06 WBC 9.6 RBC 3.95 L Hgb 11.6 L Hct 35 MCV 89 MCH 29 MCHC 33 RDW 17 H Plt Count 317 MPV 7.7 Neut % (Auto) 66.5 Lymph % (Auto) 21.0 [place] % (Auto) 8.6 Eos % (Auto) 3.0 Baso % (Auto) 0.9 Absolute Neuts (auto) 6.4 Absolute Lymphs (auto) 2.0 Absolute Monos (auto) 0.8 Absolute Eos (auto) 0.3 Absolute Basos (auto) 0.1 Absolute Nucleated RBC 0 Nucleated RBC % 0.1 Sodium 137 Potassium 3.6 Chloride 107 Carbon Dioxide 23 Anion Gap 7 BUN 19 Creatinine 0.67 Est GFR ( Amer) 104.7 Est GFR (Non-Af Amer) 86.5 BUN/Creatinine Ratio 28.4 H Glucose 92 Calcium 9.1 Total Bilirubin 0.40 AST 17 ALT 18 Alkaline Phosphatase 74 Total Protein 6.4 Albumin 3.3 Globulin 3.1 Albumin/Globulin Ratio 1.1 Exam: Gen: Chronically ill appearing 73 yo female in NAD HEENT: MMM, mild thrush CV: RRR, no m/r/g Resp: CTA, no w/c/r Abd: soft, nonTTP Neuro: RUE strength 1-2/5, RLE 4-5/5, NANNETTE/LLE strength 4-5/5 Assessment: [73 yo female with metastatic melanoma admitted with new onset seizure with evidence of significant INVESTOR RELATIONS SPECIALIST progression. Strength improving.] Plan: [1. Metastatic melanoma with INVESTOR RELATIONS SPECIALIST mets - cont dexamethasone at 2 mg daily (attempting to limit dose due to use of immunotherapy) - MRI demonstrates progression of prior INVESTOR RELATIONS SPECIALIST mets and 3 new lesions - plan for repeat gammaknife at [place] - plan to cont pembrolizumab following gammknife 2. Seizure - increased weakness with antiepileptics - discussed with Dr Rivera briefly who recommended decreasing dose starting with 500 mg q am and 1000 mg q pm - cont that dose of at least 1 week and could titrate down further depending on symptoms to 500-750 mg bid 3. Thrush - cont clotrimazole trouches 4. DVT prophylaxis - Lovenox 30 mg SQ daily Dispo: OT bolivar pending but goal for dc home with outpatient visit to [place] for gammaknife in the near future
[2018-05-06] MEDS: Enoxaparin(*) 30 MG/0.3 ML SYR SUBCUT SCH (11:10)
[2018-05-06] MEDS: ALPRAZolam TAB* 0.5 MG PO SCH (20:22)
[2018-05-07] MEDS: levETIRAcetam TAB* 500 MG PO SCH ×2 (09:46→22:20)
[2018-05-07] MEDS: Potassium Chlor TAB* 20 MEQ TAB.ER PO SCH (09:46)
[2018-05-07] MEDS: Vitamin THERAPEUTIC TAB PO SCH (09:47)
[2018-05-07] MEDS: Dronabinol CAP* 2.5 MG PO SCH ×2 (09:47→22:20)
[2018-05-07] MEDS: Dexamethasone TAB* 1 MG PO SCH (09:48)
[2018-05-07] MEDS: Clotrimazole TROCHE* 10 MG TROCHE PO SCH ×4 (09:48→22:20)
[2018-05-07] MEDS: Enoxaparin(*) 30 MG/0.3 ML SYR SUBCUT SCH (09:49)
[2018-05-07] MEDS: Metoprolol Succinate XL TAB* 25 MG PO SCH (09:53)
--- NOTE | 2018-05-07 13:03 | PN ---
Progress Note - Progress Note Date of Service: 05/07/18 SOAP: Subjective: [No change in symptoms. Anxious about next steps and she feels like she is not strong enough to return home.] Objective: [ Acetaminophen (Tylenol Tab*) 650 mg PO Q4HR PRN PRN Reason: PAIN Alprazolam (Xanax Tab*) 0.5 mg PO BEDTIME [facility] Last Admin: 05/06/18 20:22 Dose: 0.5 mg Clotrimazole (Mycelex Alirio*) 10 mg PO QID [facility] Last Admin: 05/07/18 09:48 Dose: 10 mg Dexamethasone (Decadron Tab*) 2 mg PO DAILY WITH MEAL [facility] Last Admin: 05/07/18 09:48 Dose: 2 mg Docusate Sodium (Colace Cap*) 200 mg PO BEDTIME PRN PRN Reason: CONSTIPATION Last Admin: 05/03/18 22:10 Dose: 200 mg Dronabinol (Marinol Cap*) 2.5 mg PO BID [facility] Last Admin: 05/07/18 09:47 Dose: 2.5 mg Enoxaparin Sodium (Lovenox(*)) 30 mg SUBCUT Q24H [facility] Last Admin: 05/07/18 09:49 Dose: 30 mg Levetiracetam (Keppra Tab*) 1,000 mg PO 2100 [facility] Last Admin: 05/06/18 20:22 Dose: 1,000 mg Levetiracetam (Keppra Tab*) 500 mg PO 0900 [facility] Last Admin: 05/07/18 09:46 Dose: 500 mg Lorazepam (Ativan Inj*) 1 mg IV PUSH Q2H PRN PRN Reason: seizure lasting >5min Metoprolol Succinate (Toprol Xl Tab*) 25 mg PO DAILY [facility] Last Admin: 05/07/18 09:53 Dose: Not Given Multivitamins (Theragran Tab*) 1 tab PO QAM [facility] Last Admin: 05/07/18 09:47 Dose: 1 tab Potassium Chloride (Klor Con Er Tab*) 40 meq PO DAILY [facility] Last Admin: 05/07/18 09:46 Dose: 40 meq Senna (Senokot Tab*) 2 tab PO BEDTIME PRN PRN Reason: CONSTIPATION Last Admin: 05/03/18 22:10 Dose: 2 tab Vital Signs: Temp Pulse Resp BP Pulse Ox 98.4 F 64 16 106/59 100 05/07/18 11:24 05/07/18 11:24 05/07/18 11:24 05/07/18 11:24 05/07/18 11:24 Exam: Gen: Chronically ill appearing 73 yo female in NAD HEENT: MMM, mild thrush CV: RRR, no m/r/g Resp: CTA, no w/c/r Abd: soft, nonTTP Neuro: RUE strength 1-2/5, RLE 4-5/5, NANNETTE/LLE strength 4-5/5 Assessment: [73 yo female with metastatic melanoma admitted with new onset seizure with evidence of significant MANAGER ER progression. Strength improving.] Plan: [1. Metastatic melanoma with MANAGER ER mets - cont dexamethasone at 2 mg daily (attempting to limit dose due to use of immunotherapy) - MRI reviewed further with radiation oncology - only one of the lesions appears to be new when compared to her post-gammaknife MRI from 10/2017 - other lesions have been present and treated previously - increase in size may be due to post gammknife edema v tumor flare after starting immunotherapy - plan for gammaknife to new lesion - but this is unlikely to significantly change her symptoms significantly - plan to continue pembrolizumab 2. Seizure - increased weakness with antiepileptics - discussed with Dr Rivera briefly who recommended decreasing dose starting with 500 mg q am and 1000 mg q pm - cont that dose of at least 1 week and could titrate down further depending on symptoms to 500-750 mg bid 3. Thrush - cont clotrimazole trouches 4. DVT prophylaxis - Lovenox 30 mg SQ daily Dispo: plan for acute v subacute rehab with gammaknife at [facility] next 05/14
[2018-05-07] MEDS: ALPRAZolam TAB* 0.5 MG PO SCH (22:20)
[2018-05-08 08:58] VITALS: BP 119/78
[2018-05-08] MEDS: Clotrimazole TROCHE* 10 MG TROCHE PO SCH (10:42)
[2018-05-08] MEDS: Potassium Chlor TAB* 20 MEQ TAB.ER PO SCH (10:43)
[2018-05-08] MEDS: Dronabinol CAP* 2.5 MG PO SCH (10:43)
[2018-05-08] MEDS: Dexamethasone TAB* 1 MG PO SCH (10:43)
[2018-05-08] MEDS: levETIRAcetam TAB* 500 MG PO SCH (10:43)
[2018-05-08] MEDS: Metoprolol Succinate XL TAB* 25 MG PO SCH (10:43)
[2018-05-08] MEDS: Enoxaparin(*) 30 MG/0.3 ML SYR SUBCUT SCH (10:44)
[2018-05-08] MEDS: Vitamin THERAPEUTIC TAB PO SCH (10:44)
--- NOTE | 2018-05-08 11:13 | DS ---
CC: Dr. Goodson; Dr. Renae * DATE OF ADMISSION: 05/02/2018. DATE OF DISCHARGE: 05/08/2018. PRIMARY ONCOLOGIST: Dr. Saleem Goodson. CONSULTING NEUROLOGIST: Dr. Carlton. ATTENDING PHYSICIAN: Dr. Adalid Fitch * (dictated by SUZIE Colindres). DISCHARGING PROVIDER: SUZIE Colindres. PRIMARY DISCHARGE DIAGNOSES: 1. 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 2. Thrush. DISCHARGE MEDICATIONS: 1. Acetaminophen 650 mg p.o. q.4 hours as needed for headache or fever. 2. Alprazolam 0.5 mg p.o. at bedtime. 3. Clotrimazole Alirio 10 mg by mouth 4 times daily. 4. Dexamethasone 2 mg p.o. daily. 5. Docusate 200 mg p.o. at bedtime. 6. Marinol 2.5 mg p.o. twice daily. 7. Lexapro 5 mg p.o. daily. 8. Metoprolol Succinate 25 mg p.o. daily. 9. Potassium Chloride 40 mEq p.o. daily. 10. Compazine 10 mg p.o. q.6 hours as needed for nausea or vomiting. 11. Senna two tablets p.o. at bedtime. 12. Women's One A Day multivitamin. 13. Keppra 500 mg q.a.m. and 1,000 mg q.p.m. HOSPITAL IMAGIN. CT brain, 05/02/2018, demonstrates new and enlarging brain lesions bilaterally, most pronounced on the left with significant vasogenic edema. All lesions contain areas of high density which may represent melanin. No midline shift. Lucent foci noted in the posterior calvarium which were seen on prior MRI's. 2. MRI of the brain, 05/05/2018, shows multiple enhancing lesions of the cerebral hemispheres bilaterally, some of which demonstrate high T1 signal precontrast consistent with metastatic melanoma. Dominant lesion of the left anterior insula measuring up to 1.8 cm in size and these have progressed compared to the prior MRI examination. There is associated vasogenic edema most pronounced within the anterior parietal and posterior frontal lobe, as well as the left anterior insula/inferior frontal lobe and anterior temporal lobe. There is minimal shift to the right. HOSPITAL COURSE: This is a 73-year-old female followed by Dr. Goodsno for metastatic melanoma with known brain metastasis, status post gamma knife at [place] in October of 2017. The patient has been treated with two different combinations of BRAF/MEK inhibitors, both have been discontinued due to intolerable side effects and was subsequently started on Pembrolizumab with her first cycle on 04/24/2018. The patient experience what was likely a partial complex seizure witnessed by her son at home on the evening of 05/02/2018. She was brought to the emergency department for evaluation. CT demonstrated multiple lesions with significant vasogenic edema. 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 The patient was subsequently loaded with Keppra and was noted to have no further seizure activity. She was continued on a rather low dose of Dexamethasone due to her recent treatment with immunotherapy and desire to continue with this intervention. The patient regained nearly full strength in her right lower extremity during her hospitalization, but remained quite weak in her right upper extremity, significantly limiting her ability to perform ADL's as well as walk independently. Imaging was reviewed with radiation oncologist, Dr. Diego Renae, and her radiation oncologist, Dr. Martinez, at [place]. It was felt that the majority of her lesions were present on her post gamma knife scan from October and had been previously treated, but there was at least one new lesion which would be appropriate for gamma knife intervention. DISPOSITION AND FOLLOW-UP PLAN: The patient is being discharged in stable condition to [facility] for subacute rehab with focus on improving strength in the right upper and lower extremity with a goal to return home where she lives with her son. She will be continued on Keppra at 500 mg in the morning and 1,000 mg in the evening which can be titrated down further if she continues to have trouble with lethargy or weakness on this medication to a minimum dose of 500 mg twice a day. She will be seen at [place] on 05/14/2018 for a gamma knife procedure with Dr. Martinez, and follow-up with SUZIE Colindres on 2018 for an office visit and will likely receive her second cycle of Pembrolizumab at that time as well. Plans at this time are to continue treatment with Pembrolizumab, Dexamethasone at current low dose of 2 mg daily and antiepileptics as discussed above. SUZIE COLINDRES [id number]/[facility] #: [id number] [facility]ITALFrancia
[2018-05-08] MEDS ORDERED: LORazepam TAB(*) 0.5 MG PO ONE (11:49)
== END 2018-05-08 12:15 | DRG 54 ==
LOC: ED 18:31 → MED 21:43 → OBSVTOIN 05-03 15:05 → MEDTELE 05-07 15:53 → MED 05-07 16:08
PROVIDERS: ADMIT Hospitalist; ATTEND Internal Medicine Hematology & Oncology
DX: C79.31 Secondary malignant neoplasm of brain (principal); G93.6 Cerebral edema; G81.91 Hemiplegia, unspecified affecting right dominant side; G40.209 Localization-related (focal) (partial) symptomatic epilepsy and epileptic syndromes with complex partial seizures, not intractable, without status epilepticus; I50.9 Heart failure, unspecified; I11.0 Hypertensive heart disease with heart failure; E78.00 Pure hypercholesterolemia, unspecified; M19.90 Unspecified osteoarthritis, unspecified site; F41.9 Anxiety disorder, unspecified; R40.2412 Glasgow coma scale score 13-15, at arrival to emergency department; C43.9 Malignant melanoma of skin, unspecified; R33.9 Retention of urine, unspecified; B37.9 Candidiasis, unspecified; E78.5 Hyperlipidemia, unspecified; G83.84 Todd's paralysis (postepileptic); Z91.012 Allergy to eggs; Z91.048 Other nonmedicinal substance allergy status; Z82.49 Family history of ischemic heart disease and other diseases of the circulatory system; Z83.3 Family history of diabetes mellitus; Z87.891 Personal history of nicotine dependence
CPT/HCPCS: 36415; 70450; 70553; 80048; 80053; 81003; 83605; 83735; 85025; 85610; 93005; 99232; 99283; A9270-GY; A9579; G8978-GP-CK; G8979-GP-CJ; G8987-GO-CK; G8988-GO-CI; J1100; J1650; J2060